=== PATIENT | female | born 1935 | race Hispanic/Latino ===

== ENCOUNTER 2018-06-27 09:09 | Day surgery (SDC) | payer MEDICARE ==
[2018-06-27 08:27] VITALS: BMI 29.5
[2018-06-27 09:59] LABS: INR 1.05; PARTIAL THROMBOPLASTIN TIME 28.6 Seconds (25.1-36.5); PROTHROMBIN TIME 12.1 SECONDS (9.4-12.5)
[2018-06-27 10:02] LABS: HDL CHOLESTEROL 39 mg/dL (29-60)
[2018-06-27 10:14] LABS: LDL CHOLESTEROL 60 mg/dL (0-129)
[2018-06-27] MEDS ORDERED: Lidocaine 2% Inj (20ml) ONE (11:41)
[2018-06-27] MEDS ORDERED: Phenylephrine 10 mg/ml Inj ONE (11:42)
[2018-06-27] MEDS ORDERED: Iohexol 350mgl/ml 50 ML ONE (11:42)
--- NOTE | 2018-06-27 12:27 | CARD ---
APPROVED REPORT Date of service: 06/27/2018 EKG Measurement Heart [id number] <Conclusion> Sinus tachycardia Nonspecific ST abnormality Abnormal ECG
[2018-06-27] MEDS ORDERED: Midazolam 2 MG/2 ML VIAL ONE ×2 (12:46→12:57)
[2018-06-27] MEDS ORDERED: Iohexol 350 MG/100 ML VIAL ONE (13:12)
[2018-06-27] MEDS ORDERED: Sodium Chloride 0.9% 1,000 ML IV SCH (13:45)
--- NOTE | 2018-06-27 14:16 | CARDCATH ---
PROCEDURE DATE: 06/27/2018 CARDIAC CATHETERIZATION AND PTCA HISTORY: The patient is an 83-year-old woman with history of diabetes mellitus, hypertension and hypercholesterolemia who presents with progressive exertional shortness of breath to where walking less than half a block, she develops shortness of breath. A stress test was abnormal with noted ischemic areas. Because of this, cardiac catheterization was recommended. PROCEDURE: Left heart catheterization with coronary arteriography, left ventriculogram, supra-aortic valvular injection as well as a PTCA and stent of the circumflex artery. The right femoral artery was cannulated with 6-Bangladeshi sheath. There were no complications. I performed moderate sedation which included the presence of an independent trained observer that assisted in monitoring the patient's level of consciousness and physiologic status. After administration of Versed and fentanyl, my intra service time was 30 minutes. The findings on catheterization revealed a left ventricle that contracted normally. Estimated ejection fraction of 65%. The left main artery was unremarkable. The LAD revealed diffuse atherosclerosis without critical lesions. The diagonal vessels were free of significant disease. The circumflex artery was a large vessel and revealed an eccentric 80% stenosis noted in the proximal portion. The right coronary artery was a codominant vessel and revealed a 50% stenosis in its midportion. Supra-aortic valvular injection revealed no aortic insufficiency. The patient was started on intravenous Angiomax on the fluoroscopic guide, the guiding catheter was placed in the ostium of the left main artery. An ATW wire was used to cross the critical lesion in the circumflex artery. A 3.5 x 12 mm drug-eluting stent was placed and deployed in the proximal circumflex at 16 atmospheres of pressure. Repeat coronary arteriography revealed an excellent result with no residual stenosis and HEATH 3 flow. The patient tolerated the procedure well. Angio-Seal was used to close the femoral artery site. In summary, the procedure was successful PTCA and stent of a critically stenosed circumflex artery with a drug-eluting stent. Cardiac catheterization reveals an 80% eccentric stenosis in the proximal circumflex. A 50% stenoses in the mid RCA. Normal LV function. No aortic insufficiency. Given these findings, the patient will need to remain on aspirin indefinitely and Plavix for at least a year and undergo a strict cardiac risk reduction program. If she continues to experience symptoms, we will consider PTCA and stent of the 50% RCA stenoses. Hemal Noel MD [facility] # [id number]
--- NOTE | 2018-06-27 19:46 | CARD ---
APPROVED REPORT Date of service: 06/27/2018 EKG Measurement Heart [id number] <Conclusion> Atrial fibrillation with rapid ventricular response Abnormal QRS-T angle, consider primary T wave abnormality Abnormal ECG
--- NOTE | 2018-06-27 21:00 | HP ---
HISTORY OF PRESENT ILLNESS: The patient is an 83-year-old woman with a past medical history of hypertension, hyperlipidemia and type 2 diabetes mellitus who presented for electively scheduled cardiac catheterization after undergoing an abnormal nuclear stress test. The patient was initially seen in her PMD's office 4 days ago for evaluation of progressively worsening exertional dyspnea and decreased exercise tolerance. She was scheduled for a nuclear stress test with Dr. Noel which was grossly abnormal and, as such, was scheduled for a cardiac catheterization. The patient was taken to the cardiac catheterization lab with Dr. Noel where cardiac cath revealed 80% stenosis to the proximal circumflex (which was stented with a drug-eluting stent) and 50% stenosis to the mid RCA (which was not instrumented). The patient tolerated the procedure well and no immediate postprocedure complications were noted. She was subsequently transferred to the telemetry lambert for continued post procedure care. PAST MEDICAL HISTORY: As per HPI, also hypothyroidism, osteoarthritis and GERD. PAST SURGICAL HISTORY: Hysterectomy and removal of benign breast lump. ALLERGIES: NKDA. MEDICATIONS: Synthroid 125 mcg p.o. daily, Glipizide 5 mg p.o. b.i.d., Oxybutynin 5 mg p.o. b.i.d., Protonix 40 mg p.o. daily, Metoprolol 25 mg p.o. b.i.d., Lipitor 40 mg p.o. daily, Ramipril 10 mg p.o. daily and Aspirin 81 mg p.o. daily. FAMILY HISTORY: Noncontributory. SOCIAL HISTORY: The patient is a former [id number]-lesn smoker but quit 15 years ago. She reports social alcohol use and denies illicit drug abuse. REVIEW OF SYSTEMS: A 12-point review of systems is negative except as per HPI. PHYSICAL EXAMINATION: VITAL SIGNS: Temperature 97.2, pulse 100, blood pressure 155/90, respiratory rate 20, oxygen saturation 99% on room air. GENERAL: No apparent distress. HEENT: PERRL, EOMI. No scleral icterus. No conjunctival pallor. NECK: No JVD, no bruits. LUNGS: Clear to auscultation. CARDIOVASCULAR: Regular rate and rhythm. Normal S1, S2. ABDOMEN: Normoactive bowel sounds. Soft, nontender, nondistended. EXTREMITIES: No edema. No femoral bruits or hematoma noted at catheterization site. NEUROLOGIC: Awake, alert and oriented x 3. No focal motor deficits. LABORATORY DATA: Labs are pending. ASSESSMENT: The patient is an 83-year-old woman with past medical history of hypertension, hyperlipidemia and type 2 diabetes mellitus who presented for electively scheduled cardiac catheterization after undergoing an abnormal nuclear stress who is now s/p PCI with ARVIND stent placement to the proximal circumflex lesion. PLAN: 1. CAD s/p PCI with ARVIND stent placement. Input from Dr. Noel noted and greatly appreciated. Continue with postcatheterization care as per Dr. Noel. Continue Aspirin 81 mg p.o. daily, Plavix 75 mg p.o. daily, Lipitor 40 mg p.o. daily and Metoprolol 25 mg p.o. b.i.d. 2. Hypertension. Continue Metoprolol 25 mg p.o. b.i.d. 3. Hyperlipidemia. Continue Lipitor 40 mg p.o. daily. 4. Type 2 diabetes mellitus. Resume Glipizide 5 mg p.o. b.i.d. 6. Hypothyroidism. Resume Synthroid 125 mcg p.o. daily. 7. Osteoarthritis. 8. Prophylaxis. GI prophylaxis not indicated as the patient is eating. DVT prophylaxis not indicated as the patient is ambulatory. CODE STATUS: Full code. Romulo Flores MD [facility]
[2018-06-27] MEDS ORDERED: Latanoprost 2.5 ml Opht Soln OU SCH (22:00)
[2018-06-28 00:17] VITALS: RESP 20
[2018-06-28] MEDS ORDERED: Levothyroxine 125 MCG TAB PO SCH (06:00)
[2018-06-28 06:14] VITALS: O2SAT 98
[2018-06-28 07:17] LABS: BLOOD UREA NITROGEN 15 mg/dL (7-21); CALCIUM 8.8 mg/dL (8.4-10.5); GFR NON-AFRICAN AMERICAN > 60
[2018-06-28 07:21] LABS: BASO # 0.04 K/mm3 (0.0-2.0); BASO % 0.5 % (0.0-3.0); EOS # 0.3 (0.0-0.7); EOS % 3.3 % (1.5-5.0); GRAN # 5.62 (1.4-6.5); GRAN % 68.3 % (50.0-68.0); HEMOGLOBIN 10.5 g/dL (12.0-16.0); LYMPH # 1.6 (1.2-3.4); LYMPH % 18.9 % (22.0-35.0); MEAN CELL VOLUME 84.4 fl (80.0-105.0); MEAN CORPUSCULAR HEMOGLOBIN 25.5 pg (25.0-35.0); MEAN CORPUSCULAR HGB CONC 30.3 g/dl (31.0-37.0); MEAN PLATELET VOLUME 9.6 fl (7.0-11.0); MONO # 0.7 (0.1-0.6); RBC 4.11 10^6/uL (3.5-6.1); RED CELL DISTRIBUTION WIDTH 15.5 % (11.5-14.5); WHITE BLOOD COUNT 8.2 10^3/uL (4.5-11.0)
--- NOTE | 2018-06-28 12:20 | PN ---
SUBJECTIVE: The patient was seen and examined at bedside on the telemetry lambert. No acute events overnight. She is doing well s/p cardiac catheterization. She was tachycardic with a pulse in the 200s upon ambulation but was asymptomatic during these episodes. She also remains slightly hypertensive but overall is doing well and offers no complaints. OBJECTIVE: VITAL SIGNS: Temperature 98.9, pulse 107, blood pressure 147/102, respiratory rate 20, oxygen saturation 98% on room air. GENERAL: No apparent distress. HEENT: PERRL, EOMI. No scleral icterus. No conjunctival pallor. NECK: No JVD, no bruits. LUNGS: Clear to auscultation. CARDIOVASCULAR: Regular rate and rhythm. Normal S1 and S2. ABDOMEN: Normoactive bowel sounds. Soft, nontender, nondistended. EXTREMITIES: No edema. No femoral bruit or hematoma. NEUROLOGIC: Awake, alert and oriented x 3. No focal motor deficits. LABORATORY DATA: WBC 8.2, hemoglobin 10.5, hematocrit 35, platelets 225. Chemistry reviewed and unremarkable. ASSESSMENT: The patient is an 83-year-old woman with a past medical history of hypertension, hyperlipidemia and type 2 diabetes mellitus who presented for electively scheduled cardiac catheterization after undergoing an abnormal nuclear stress test and is now s/p PCI with ARVIND stent placement to the proximal circumflex lesion. PLAN: 1. CAD s/p PCI with ARVIND stent placement. Input from Dr. Noel noted and appreciated. Continue Aspirin 81 mg p.o. daily, Plavix 75 mg p.o. daily, Lipitor 40 mg p.o. daily and increase Metoprolol to 50 mg p.o. b.i.d. 2. Hypertension. As above. We will increase Metoprolol to 50 mg p.o. b.i.d. 3. Hyperlipidemia. Continue Lipitor 40 mg p.o. daily. 4. Type 2 diabetes mellitus. Continue Glipizide 5 mg p.o. b.i.d. 5. Hypothyroidism. Continue Synthroid 125 mcg p.o. daily. 6. Osteoarthritis. 7. Prophylaxis. GI prophylaxis not indicated as the patient is eating. DVT prophylaxis not indicated as the patient is ambulatory. CODE STATUS: Full code. Romulo Flores MD [facility] # [id number] MTDD
[2018-06-28 13:06] VITALS: BP 161/97; PULSE 84; TEMP 97.8
--- NOTE | 2018-06-28 13:19 | PN ---
DATE: 06/28/2018 CARDIOLOGY FOLLOWUP SUBJECTIVE: The patient is complaining of having her procedure done of status post PTCA and stent of a proximal circumflex lesion of 80% with a drug-eluting stent. PHYSICAL EXAMINATION: VITAL SIGNS: Stable. NECK: Negative JVD. LUNGS: Without rales. HEART: S1 and S2. EXTREMITIES: Without edema. LABORATORY DATA: Unremarkable. IMPRESSION: 1. Stable post percutaneous transluminal coronary angioplasty and stent. 2. Resolution of dyspnea. 3. Double-vessel coronary artery disease with 50% mid-right coronary artery lesion. 4. Hypercholesteremia. PLAN: Given these findings, I have discussed with the patient about the need to take Plavix for a year, given the drug-eluting stent placement. The patient understands what is better about having her procedure done. I have instructed the patient to follow up with Dr. Flores as an outpatient next week. Hemal Noel MD
== END 2018-06-28 13:26 | disposition home or self-care (01) ==
LOC: CATH 09:09 → 2RSO 13:38 → CATH 06-28 13:26
PROVIDERS: ATTEND Internal Medicine Cardiovascular Disease
DX: I25.10 Atherosclerotic heart disease of native coronary artery without angina pectoris (principal); I10 Essential (primary) hypertension; E11.9 Type 2 diabetes mellitus without complications; E03.9 Hypothyroidism, unspecified; E78.00 Pure hypercholesterolemia, unspecified; E78.5 Hyperlipidemia, unspecified; I48.91 Unspecified atrial fibrillation; K21.9 Gastro-esophageal reflux disease without esophagitis; M19.90 Unspecified osteoarthritis, unspecified site; Z79.82 Long term (current) use of aspirin; Z79.84 Long term (current) use of oral hypoglycemic drugs
CPT/HCPCS: 36415 ×2; 80048; 80061; 82948 ×2; 85025; 85610; 85730; 86850; 86900; 93005; 93458; 99152; 99153; C1769 ×2; C1874; C1887; C2629; C9600; J0583; J1644; J2250; J3010; J7030; Q9967 ×2

== ENCOUNTER 2018-07-17 11:20 | Inpatient (IN) | payer MEDICARE ==
[2018-07-17 12:22] LABS: VENOUS BLOOD GAS BASE EXCESS -4.2 mmol/L (0.0-2.0); VENOUS BLOOD GAS PO2 63 mm/Hg (30-55); VENOUS BLOOD PH 7.29 (7.32-7.43)
--- NOTE | 2018-07-17 12:25 | ED PDOC ---
Arrival/HPI - General Chief Complaint: Shortness Of Breath Time Seen by Provider: 07/17/18 11:22 Historian: Patient - Critical Care Critical Care Minutes: 30 minutes - History of Present Illness Narrative History of Present Illness (Text): 07/17/18 11:45 83 year old female, with past medical history of hypertension, hyperlipidemia, Type 2 diabetes mellitus, ID and recent cardiac catheterization (06/27/18), was referred to the Emergency department by her PMD for evaluation of shortness of breath since prior to arrival. Patient states she was unable to sleep for past 2 nights, prompting her to visit her PMD this morning for evaluation. As per patient, while she was explaining her symptoms, patient experienced an episode of shortness of breath at the office and was subsequently referred to the ED for evaluation. Patient reports similar episodes of intermittent shortness of breath since her catheterization associated with intermittent dyspnea on exertion but denies any associated chest pain. Patient denies any fevers, chills, headache, dizziness, cough, abdominal pain, nausea, vomiting, diarrhea, back pain, neck pain, leg swelling or any other complaints. PMD: Dr. Flores Vocal Artist: Dr. Noel Time/Duration: Prior to Arrival Symptom Onset: Gradual Symptom Course: Unchanged Activities at Onset: Light Context: Other (Referred by Dr. Flores) Past Medical History - Provider Review Nursing Documentation Reviewed: Yes - Tetanus Immunization Tetanus Immunization: Up to Date - Cardiac Hx Pacemaker: No - Pulmonary Hx Respiratory Disorders: No - Neurological Hx Paralysis: No - HEENT Hx HEENT Disorder: Yes (WEARS RX GLASSES) Hx Cataracts: Yes (WITH SURGERY) - Renal Hx Renal Disorder: No - Endocrine/Metabolic Hx Hyperthyroidism: Yes Hx Hypothyroidism: Yes - Hematological/Oncological Hx Blood Transfusions: No Hx Blood Transfusion Reaction: No - Integumentary Hx Dermatological Disorder: No - Musculoskeletal/Rheumatological Hx Musculoskeletal Disorders: Yes - Gastrointestinal Hx Gastrointestinal Disorders: Yes (CONSTIPATION) Hx Gastroesophageal Reflux: Yes - Genitourinary/Gynecological Hx Genitourinary Disorders: (HYSTERECTOMY) - Psychiatric Hx Emotional Abuse: No Hx Physical Abuse: No Hx Substance Use: No - Surgical History Hx Hysterectomy: Yes Hx Joint Replacement: Yes - Anesthesia Hx Anesthesia: Yes Hx Anesthesia Reactions: No Hx Malignant Hyperthermia: No - Suicidal Assessment Feels Threatened In Home Enviroment: No Family/Social History - Physician Review Nursing Documentation Reviewed: Yes Family/Social History: Unknown Family HX Smoking Status: Former Smoker Hx Alcohol Use: No Hx Substance Use: No Hx Substance Use Treatment: (quit 10 years ago) Allergies/Home Meds Allergies/Adverse Reactions: Allergies No Known Allergies Allergy (Verified 06/01/16 13:07) Home Medications: Home Meds Medication Instructions Recorded Confirmed Aspirin [Ecotrin] 325 mg PO DAILY 09/28/13 06/28/18 GlipiZIDE [Glucotrol] 5 mg PO BID 09/28/13 06/28/18 Levothyroxine 125 mcg PO DAILY 09/28/13 06/28/18 Meloxicam [Mobic] 15 mg PO DAILY 09/28/13 06/27/18 Oxybutynin [Ditropan Tab] 5 mg PO BID 09/28/13 06/28/18 Ramipril 10 mg PO DAILY 09/28/13 06/27/18 Atorvastatin [Lipitor] 40 mg PO DAILY 06/27/18 06/27/18 Calcium Carbonate [Oscal] 500 mg PO DAILY 06/27/18 06/27/18 Donepezil [Aricept] 5 mg PO DAILY 06/27/18 06/27/18 Pantoprazole [Protonix EC Tab] 40 mg PO DAILY 06/27/18 06/27/18 Review of Systems - Physician Review All systems were reviewed & negative as marked: Yes - Review of Systems Constitutional: absent: Fevers Respiratory: SOB. absent: Cough Cardiovascular: absent: Chest Pain Gastrointestinal: absent: Abdominal Pain, Diarrhea, Nausea, Vomiting Genitourinary Female: absent: Dysuria, Hematuria Musculoskeletal: absent: Back Pain, Neck Pain Skin: absent: Rash Neurological: absent: Headache, Dizziness Physical Exam Vital Signs Reviewed: Yes Vital Signs Temp Pulse Resp BP Pulse Ox 07/17/18 11:37 18 07/17/18 11:34 97.9 F 107 H 18 139/89 91 L Temperature: Afebrile Blood Pressure: Normal Pulse: Tachycardic Respiratory Rate: Normal Appearance: Positive for: Well-Appearing, Non-Toxic, Comfortable Pain Distress: None Mental Status: Positive for: Alert and Oriented X 3 - Systems Exam Head: Present: Atraumatic, Normocephalic Pupils: Present: PERRL Extroacular Muscles: Present: EOMI Conjunctiva: Present: Normal Neck: Present: Normal Range of Motion Respiratory/Chest: Present: Clear to Auscultation, Good Air Exchange, Tachypneic (91% saturation at room air as per RN). No: Respiratory Distress, Accessory Muscle Use, Wheezes, Rhonchi Cardiovascular: Present: Regular Rate and Rhythm, Normal S1, S2. No: Murmurs Abdomen: No: Tenderness, Distention, Peritoneal Signs Back: Present: Normal Inspection Upper Extremity: Present: Normal Inspection. No: Cyanosis, Edema Lower Extremity: Present: Normal Inspection. No: Edema Neurological: Present: GCS=15, CN II-XII Intact, Speech Normal Skin: Present: Warm, Dry, Normal Color. No: Rashes Psychiatric: Present: Alert, Oriented x 3, Normal Insight, Normal Concentration Medical Decision Making ED Course and Treatment: 07/17/18 11:45 Impression: 83 year old female presents to the Emergency department for evaluation of shortness of breath. Differential Diagnosis included but are not limited to: Shortness of breath r/o ACS, CHF, PE Plan: -- VBG -- CTA -- EKG -- Labs -- Chest X-ray -- Blood Culture -- Reassess and disposition Prior Visits: Notes and results from previous visits were reviewed. Progress Notes: EKG: Ordered, reviewed, and independently interpreted the EKG, shows sinus tachycardia at 106bpm with PACs. 07/17/18 14:59 Chest X-ray reviewed by radiologist, shows patchy infiltrate to right lower lobe. CTA reviewed by radiologist, shows no pulmonary embolism. Moderate pericardial effusion. Moderate bilateral PE, right greater than left. Severe bullous emphysema. 07/17/18 15:05 Patient feels much better after 1 L NS. No more fluids were ordered. Lungs are clear. No w/r/r. No respiratory distress. Case discussed with Romulo Lugo who agrees with plan to treat with Las ix IV, Solumedrol IV, and Albuterol treatment. Case discussed with Dr. Noel who came to evaluate patient. All involved agree with placement to Telemetry. - RAD Interpretation Radiology Orders: 07/17/18 11:45 ANGIO CHEST PE PROTOCOL [CT] Stat 07/17/18 11:46 CHEST PORTABLE [RAD] Stat Fiber Picker: Radiologist - EKG Interpretation Interpreted by ED Physician: Yes Type: 12 lead EKG - Scribe Statement The provider has reviewed the documentation as recorded by the Mitchellibmague Ferreira. All medical record entries made by the Jeovany were at my direction and personally dictated by me. I have reviewed the chart and agree that the record accurately reflects my personal performance of the history, physical exam, medical decision making, and the department course for this patient. I have also personally directed, reviewed, and agree with the discharge instructions and disposition. Disposition/Present on Arrival - Present on Arrival Any Indicators Present on Arrival: No History of DVT/PE: No History of Uncontrolled Diabetes: No Urinary Catheter: No History of Decub. Ulcer: No History Surgical Site Infection Following: None - Disposition Have Diagnosis and Disposition been Completed?: Yes Diagnosis: Pericardial effusion, CHF (congestive heart failure) Disposition: HOSPITALIZED Disposition Time: 15:04 Patient Plan: Admission Patient Problems: Current Active Problems Problem Status Onset Pericardial effusion Acute CHF (congestive heart failure) Acute Condition: GUARDED
[2018-07-17] MEDS ORDERED: Sodium Chloride 0.9% 1,000 ML IV STA (12:30)
[2018-07-17 12:41] LABS: BASO # 0.03 K/mm3 (0.0-2.0); BASO % 0.4 % (0.0-3.0); EOS % 0.5 % (1.5-5.0); GRAN % 72.6 % (50.0-68.0); HEMOGLOBIN 11.2 g/dL (12.0-16.0); LYMPH # 1.6 (1.2-3.4); LYMPH % 19.2 % (22.0-35.0); MEAN CELL VOLUME 83.4 fl (80.0-105.0); MEAN CORPUSCULAR HEMOGLOBIN 25.4 pg (25.0-35.0); MEAN CORPUSCULAR HGB CONC 30.4 g/dl (31.0-37.0); MEAN PLATELET VOLUME 9.7 fl (7.0-11.0); MONO # 0.6 (0.1-0.6); MONO % 7.3 % (1.0-6.0); RBC 4.41 10^6/uL (3.5-6.1); RED CELL DISTRIBUTION WIDTH 15.7 % (11.5-14.5); WHITE BLOOD COUNT 8.3 10^3/uL (4.5-11.0)
[2018-07-17 12:42] LABS: ALB/GLOB RATIO 1.2 (1.1-1.8); ALBUMIN 3.7 g/dL (3.0-4.8); ALT/SGPT 35 U/L (7-56); AST/SGOT 33 U/L (14-36); BLOOD UREA NITROGEN 22 mg/dL (7-21); CALCIUM 9.4 mg/dL (8.4-10.5); GFR NON-AFRICAN AMERICAN > 60
[2018-07-17 12:47] LABS: INR 1.46; PARTIAL THROMBOPLASTIN TIME 25.1 Seconds (25.1-36.5); PROTHROMBIN TIME 16.9 SECONDS (9.4-12.5)
[2018-07-17 12:48] LABS: B-TYPE NATRIURETIC PEPTIDE 8030 pg/mL (0-450); TROPONIN I 0.03 ng/mL
[2018-07-17] MEDS ORDERED: Iohexol 350 MG/100 ML VIAL ONE (13:34)
--- NOTE | 2018-07-17 14:15 | RAD ---
Date of service: 07/17/2018 HISTORY: shortness of breathe COMPARISON: No prior. FINDINGS: LUNGS: Patchy infiltrate in the right lower lobe. PLEURA: No significant pleural effusion identified, no pneumothorax apparent. CARDIOVASCULAR: Aortic calcifications Moderate to severe cardiomegaly no pulmonary vascular congestion. OSSEOUS STRUCTURES: No significant abnormalities. VISUALIZED UPPER ABDOMEN: Normal. OTHER FINDINGS: None. IMPRESSION: Patchy infiltrate in the right lower lobe
--- NOTE | 2018-07-17 14:41 | CT ---
Date of service: 07/17/2018 PROCEDURE: CT Chest with contrast (Pulmonary Angiogram) HISTORY: sob r/o PE COMPARISON: None available. TECHNIQUE: Axial computed tomography images were obtained of the chest in the pulmonary arterial phase of enhancement. Coronal and sagittal reformatted images were created and reviewed. Intravenous contrast dose: Radiation dose: Total exam DLP = 439.5 mGy-cm. This CT exam was performed using one or more of the following dose reduction techniques: Automated exposure control, adjustment of the mA and/or kV according to patient size, and/or use of iterative reconstruction technique. FINDINGS: PULMONARY ARTERIES: Unremarkable. No pulmonary embolism. AORTA: No acute findings. No thoracic aortic aneurysm. Aortic calcifications. LUNGS: Severe bolus emphysema addendum a upper lung zones. PLEURAL SPACES: Moderate bilateral right breast atelectasis. HEART: Cardiomegaly. Moderate pericardial effusion. LYMPH NODES: No lymphadenopathy. BONES, CHEST WALL: Unremarkable. No fracture or destructive lesion OTHER FINDINGS: Unremarkable. IMPRESSION: No pulmonary embolism. Moderate pericardial effusion. Moderate bilateral pleural effusions, right greater left. Severe bullous emphysema.
[2018-07-17] MEDS ORDERED: Albuterol-Ipratrop 3 mg / 0.5 (3 ml) UD IH STA (14:57)
[2018-07-17] MEDS ORDERED: Albuterol-Ipratrop 3 mg / 0.5 (3 ml) UD IH PRN (15:14)
[2018-07-17] MEDS ORDERED: Albuterol-Ipratrop 3 mg / 0.5 (3 ml) UD IH SCH (15:15)
[2018-07-17 17:15] LABS: VENOUS BLOOD GAS BASE EXCESS -5.8 mmol/L (0.0-2.0); VENOUS BLOOD GAS PO2 37 mm/Hg (30-55); VENOUS BLOOD PH 7.22 (7.32-7.43)
[2018-07-17] MEDS ORDERED: Sodium Chloride 0.9% 1,000 ML IV SCH (17:30)
[2018-07-17] MEDS: Insulin Reg-LOW-Coverage SC SCH ×2 (17:33→22:43)
[2018-07-17 18:24] LABS: ALB/GLOB RATIO 1.2 (1.1-1.8); ALBUMIN 3.5 g/dL (3.0-4.8); ALT/SGPT 30 U/L (7-56); AST/SGOT 35 U/L (14-36); BLOOD UREA NITROGEN 19 mg/dL (7-21); CALCIUM 8.3 mg/dL (8.4-10.5); GFR NON-AFRICAN AMERICAN > 60
[2018-07-17] MEDS ORDERED: Magnesium Sulfate 2 gm/50 ml 2 GM/50 ML BAG IVPB ONE (18:28)
[2018-07-17] MEDS ORDERED: diltiaZEM IVPB 100mg in NS 100 ML IV SCH (18:45)
--- NOTE | 2018-07-17 19:24 | CARD ---
APPROVED REPORT Date of service: 07/17/2018 EKG Measurement Heart [id number] <Conclusion> Sinus tachycardia with premature atrial complexes with aberrant conduction Cannot rule out Anterior infarct, age undetermined Abnormal ECG
[2018-07-17 19:25] LABS: BASO # 0.02 K/mm3 (0.0-2.0); BASO % 0.3 % (0.0-3.0); GRAN # 6.82 (1.4-6.5); GRAN % 89.2 % (50.0-68.0); HEMOGLOBIN 10.9 g/dL (12.0-16.0); LYMPH # 0.7 (1.2-3.4); LYMPH % 8.8 % (22.0-35.0); MEAN CELL VOLUME 82.6 fl (80.0-105.0); MEAN CORPUSCULAR HEMOGLOBIN 24.9 pg (25.0-35.0); MEAN CORPUSCULAR HGB CONC 30.1 g/dl (31.0-37.0); MEAN PLATELET VOLUME 9.3 fl (7.0-11.0); MONO # 0.1 (0.1-0.6); MONO % 1.7 % (1.0-6.0); RBC 4.38 10^6/uL (3.5-6.1); RED CELL DISTRIBUTION WIDTH 15.6 % (11.5-14.5); WHITE BLOOD COUNT 7.6 10^3/uL (4.5-11.0)
[2018-07-17] MEDS ORDERED: Levalbuterol 1.25 MG/3 ML Inhal Soln UD IH PRN (20:07)
[2018-07-17] MEDS ORDERED: MethylPREDNISolone 40 mg Vial IVP SCH (22:00)
--- NOTE | 2018-07-18 00:17 | CON ---
DATE: 07/17/2018 HISTORY OF PRESENT ILLNESS: The patient is an 83-year-old woman who presents with on and off shortness of breath since her angioplasty on 06/27/2018. At that time, the patient presented with progressive exertional shortness of breath until she developed chest pain at rest. Stress test revealed ischemic areas in the posterior wall. The patient underwent successful PTCA and stenting of 80% circumflex artery. Her overall ejection fraction is 65%. The patient now presents to the emergency room with progressive shortness of breath with minimal exertion. She states she has been taking all her medications faithfully. PAST MEDICAL HISTORY: Her past medical history includes a long history of smoking with four packs a day that was stopped several years ago. She suffers from diabetes mellitus, hypertension, and hypercholesterolemia. FAMILY HISTORY: Text. SOCIAL HISTORY: Text. REVIEW OF SYSTEMS: A 14-point review of systems revealed no angina, but positive exertional dyspnea with negative edema in the lower extremities. PHYSICAL EXAMINATION VITAL SIGNS: Blood pressure is 131/70, heart rate is 100. NECK: Negative JVD. CARDIOPULMONARY: S1 and S2. LUNGS: Without rales. EXTREMITIES: Without edema. EKG shows no acute changes. LABORATORY DATA: Hemoglobin is 11.2. Chemistries: BUN and creatinine unremarkable. Glucose is 147. The ProBNP is 8030. Preliminary echocardiogram reveals mild LV hypokinesis diffusely, mild pericardial effusion with severe pulmonary hypertension. IMPRESSION: 1. Progressive shortness of breath. 2. Mild acute systolic congestive heart failure. 3. Ischemic dilated cardiomyopathy. 4. History of percutaneous transluminal coronary angioplasty and stent of the circumflex artery. 5. Severe pulmonary hypertension. 6. High probability for severe chronic obstructive pulmonary disease. 7. Diabetes mellitus. PLAN: Given these findings, we will order Lasix for the patient today. She will continue on aspirin and Plavix. We will proceed to do a cardiac catheterization in the morning, both to measure her pulmonary pressures as well as to review the patency of her circumflex artery stent. I have discussed this with the patient in detail. She is agreeable. Hemal Noel MD
[2018-07-18 00:44] VITALS: BMI 31.1
[2018-07-18] MEDS: diltiaZEM IVPB 100mg in NS 100 ML IV SCH ×3 (02:32→19:08)
[2018-07-18] MEDS: Levothyroxine 125 MCG TAB PO SCH (06:05)
[2018-07-18] MEDS: Budesonide 0.5 mg/2 ml Inhal Susp UD IH SCH ×2 (07:44→21:06)
--- NOTE | 2018-07-18 07:46 | CON ---
PULMONARY CONSULTATION DATE OF CONSULTATION: 07/18/2018 REASON FOR PULMONARY CONSULTATION: Dyspnea on exertion. REFERRING PHYSICIAN FOR THIS PULMONARY CONSULTATION: Romulo Flores MD HISTORY OF PRESENT ILLNESS: The patient is an 83-year-old female, with past medical history significant for coronary artery disease, status post angioplasty on 06/27/2018, chronic obstructive pulmonary disease, ischemic cardiomyopathy, pulmonary hypertension, diabetes mellitus, who presents to [facility] (Former[facility]) with main complaint of dyspnea on exertion for the past 3 weeks. The patient states that since her angioplasty, even minimal activity makes her breathless. She is not short of breath at rest. She does have a chronic occasional cough with occasional sputum production - unchanged. There is no history of chest pain, coughing up of blood, or chest pain - made worse with deep respirations. There is no history of temperatures, chills or infectious exposure. There is no history of night sweats, weight loss or appetite change prior to the above events. No history of leg or calf pains. No history of syncope or diaphoresis. No history of recent travel or trauma. FAMILY HISTORY: No inheritable diseases. SOCIAL HISTORY: Positive for extensive tobacco usage - stopped 15 years ago. No alcohol. MEDICATIONS: Ramipril Protonix, metoprolol, Mobic, Glucotrol, Aricept, Os-Ash, Lipitor, Ecotrin. ALLERGIES: NO KNOWN ALLERGIES. REVIEW OF SYSTEMS: No history of nausea, vomiting or diarrhea. No acute urinary symptoms. No new neurologic complaints. Rest of the review of systems is negative. PHYSICAL EXAMINATION: GENERAL: The patient appears comfortable this morning. She is not short of breath at rest. VITAL SIGNS: Temperature is 98.4, pulse is 108, respiratory rate 18/20, blood pressure 136/84. Oxygen saturation on nasal cannula is 95-96%. HEENT: Normocephalic, atraumatic. No JVD. CARDIOVASCULAR: Systolic ejection murmur at the lower left sternal border. Questionable S3 gallop. LUNGS: Decreased breath sounds at both bases. Minimal rhonchi. No wheezing. EXTREMITIES: Mild edema. No cyanosis, no clubbing. Calves are nontender to palpation. GI: Abdomen is soft, nontender and nondistended. Bowel sounds are positive. SKIN: No acute rash. NEUROLOGIC: Exam limited at the present time. PERTINENT LABORATORY DATA: CAT scan of the chest was done as an angiogram protocol. There is no pulmonary embolism seen. There is a moderate right pleural effusion. There is a smaller left pleural effusion. There is minimal consolidation adjacent to both pleural effusions. There is severe bullous emphysema noted primarily in the upper lobes. There is no lymphadenopathy. CBC: White count 7.6K, hemoglobin 10.9, hematocrit 36.2, platelets of 223,000. Complete metabolic profile: Carbon dioxide 18, glucose 150, calcium 8.3. Rest of the metabolic profile is within normal limits. Initial B-type natriuretic peptide 8030. The patient did have an echocardiogram on 06/26/2018. There is moderate pulmonary hypertension noted. However, I do not see a measurement of the right ventricular systolic pressure. The patient also had a repeat echocardiogram yesterday - results pending. IMPRESSION: 1. Acute congestive heart failure. 2. Bilateral pleural effusions. 3. Chronic obstructive pulmonary disease. 4. Probable pulmonary hypertension. 5. Ischemic cardiomyopathy. PLAN The patient presents to [facility] ([facility]) with main complaint of increasing dyspnea on exertion since her angioplasty (06/27/2018). In addition, the patient states to a chronic occasional cough with occasional sputum production. She offers no other pulmonary symptoms. I did review the CT scan of the chest - done as an angiogram protocol. Findings are noted above. The patient has received multiple doses of intravenous Lasix. On physical exam, there is only minimal bronchospasm noted. However, there is no significant alveolar-arterial gradient. I will continue with the low dose steroids, and try changing the nebulizer treatments to half-strength Xopenex. I will also add inhaled Pulmicort. The patient should receive a pulmonary function test - when out of the acute care setting. In addition, the patient may very well need treatment for her pulmonary hypertension. I am awaiting the results of the repeat echocardiogram. The patient does state to feeling better this morning - compared to the past few days. She appears clinically improved. Additional pulmonary intervention will be based on the above results, as well as the clinical status of the patient. I will discuss the above with the attending physician later this morning. Thank you very much for this pulmonary consultation. Percy Devlin MD [facility] # [id number] LOU
[2018-07-18] MEDS ORDERED: Levalbuterol 1.25 MG/3 ML Inhal Soln UD IH SCH (08:00)
[2018-07-18] MEDS: Insulin Reg-LOW-Coverage SC SCH ×3 (08:12→17:36)
[2018-07-18] MEDS ORDERED: Lidocaine 2% Inj (20ml) ONE (08:53)
[2018-07-18] MEDS ORDERED: Iodixanol 320 MG/ML 100 ML BOTTLE IV ONE (08:53)
[2018-07-18] MEDS ORDERED: Iodixanol 320 MG/ML 200 ML BOTTLE IV ONE (08:53)
[2018-07-18] MEDS ORDERED: Midazolam 2 MG/2 ML VIAL ONE ×2 (08:58→09:33)
--- NOTE | 2018-07-18 10:35 | CP.PCM.PN ---
Subjective - Date & Time of Evaluation Date of Evaluation: 07/18/18 Time of Evaluation: 10:28 - Subjective Subjective: Pt seen and examined at bedside status post cardiac cath Pt offers no complaints , on bedrest post procedure Objective - Vital Signs/Intake and Output Vital Signs (last 24 hours): Temp Pulse Resp BP Pulse Ox 98.4 F 108 H 20 136/84 95 07/18/18 06:00 07/18/18 06:00 07/18/18 06:00 07/18/18 06:00 07/18/18 00:01 Intake and Output: 07/18/18 07/18/18 06:59 18:59 Intake Total 240 Balance 240 - Medications Medications: Current Medications Albuterol/Ipratropium (Duoneb 3 Mg/0.5 Mg (3 Ml) Ud) 3 ml IH Q2H PRN PRN Reason: Shortness of Breath Apixaban (Eliquis) 5 mg PO BID [facility]; Protocol Atorvastatin Calcium (Lipitor) 40 mg PO DAILY [facility] Budesonide (Pulmicort Respules) 0.5 mg IH [id number] [facility] Last Admin: 07/18/18 07:44 Dose: Not Given Clopidogrel Bisulfate (Plavix) 75 mg PO DAILY [facility] Doxycycline Hyclate (Doryx) 100 mg PO BID [facility]; Protocol Last Admin: 07/17/18 18:51 Dose: 100 mg Furosemide (Lasix) 40 mg PO DAILY [facility] Glipizide (Glucotrol) 5 mg PO BID [facility] Last Admin: 07/17/18 18:51 Dose: 5 mg Sodium Chloride (Sodium Chloride 0.9%) 1,000 mls @ 50 mls/hr IV .Q20H [facility] Stop: 07/18/18 16:00 Last Admin: 07/17/18 18:54 Dose: 50 mls/hr diltiaZEM IVPB 100mg in NS (Cardizem 100mg In Ns) 100 mls @ 7.5 mls/hr IV .[id number] [facility] Last Admin: 07/18/18 07:40 Dose: 7.5 mls/hr Insulin Human Regular (Humulin R Low) 0 units SC ACHS [facility]; Protocol Last Admin: 07/18/18 08:12 Dose: Not Given Levalbuterol HCl (Xopenex) 0.63 mg IH [id number] [facility] Last Admin: 07/18/18 07:44 Dose: Not Given Levothyroxine Sodium (Synthroid) 125 mcg PO 0600 [facility] Last Admin: 07/18/18 06:05 Dose: Not Given Methylprednisolone (Solu-Medrol) 30 mg IVP Q12 [facility] Metoprolol Tartrate (Lopressor) 25 mg PO BID [facility] Last Admin: 07/17/18 18:00 Dose: 25 mg Ramipril (Altace) 10 mg PO DAILY [facility] Zolpidem Tartrate (Ambien) 5 mg PO HS PRN; Protocol PRN Reason: Insomnia - Labs Labs: 07/17/18 19:14 07/17/18 17:40 PT 16.9 SECONDS (9.4-12.5) H 07/17/18 12:00 INR 1.46 07/17/18 12:00 APTT 25.1 Seconds (25.1-36.5) 07/17/18 12:00 - Constitutional Appears: Well, Non-toxic - Head Exam Head Exam: ATRAUMATIC, NORMAL INSPECTION, NORMOCEPHALIC - Eye Exam Eye Exam: Normal appearance - ENT Exam ENT Exam: Mucous Membranes Moist, Normal Exam - Neck Exam Neck Exam: Full ROM, Normal Inspection - Respiratory Exam Respiratory Exam: Clear to Ausculation Bilateral - Cardiovascular Exam Cardiovascular Exam: REGULAR RHYTHM, +S1, +S2 - GI/Abdominal Exam GI & Abdominal Exam: Normal Bowel Sounds - Extremities Exam Extremities Exam: Normal Capillary Refill - Psychiatric Exam Psychiatric exam: Normal Affect - Skin Skin Exam: Normal Color, Warm Assessment and Plan - Assessment and Plan (Free Text) Assessment: 83 yr old female with pmh sig for cad with stent in RCA recently 06/27/2018, pul htn, exsmoker, dm2, LA, COPD 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 PT was in Rapid afib when she presented for the ED for which Cardizem drip was started and maintained. 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 Pulmonary and Cardiology notes reviewed. Pt also noted with elevated lactate levels. pt being treated for rapid afib , acute systolic chf and copd. will continue to follow clinically Rosa Elena Garnett
[2018-07-18] MEDS: MethylPREDNISolone 40 mg Vial IVP SCH ×2 (11:28→21:45)
[2018-07-18] MEDS: Levalbuterol 0.63 MG/3 ML Inhal Soln UD IH SCH ×2 (13:17→21:06)
--- NOTE | 2018-07-18 14:57 | CARD ---
APPROVED REPORT Date of service: 07/17/2018 EXAM: LIMITED Two-dimensional and M-mode echocardiogram. INDICATION LIMITED STUDY/FOLLOW UP FOR PERICARDIAL EFFUSION Aortic Valve AoV Peak Wekblnxh63.5cm/Charlie Peak GR.3mmHg Mitral Valve E/A ratio0.0 TDI E/Lateral E'0.0E/Medial E'0.0 Tricuspid Valve TR Peak [id number] [id number] Peak Gr.61mmHg [id number] LEFT VENTRICLE The systolic function is mildly impaired. RIGHT VENTRICLE The right ventricle is mildly dilated. ATRIA The left atrium is mildly dilated. The right atrium is moderately dilated. MITRAL VALVE The mitral valve is thickened but opens well. TRICUSPID VALVE The tricuspid valve leaflets are thickened , but open well. There is moderate to severe tricuspid regurgitation. There is moderate to severe pulmonary hypertension. PULMONIC VALVE The pulmonic valve is not well visualized. PERICARDIAL EFFUSION There is a small circumferential pericardial effusion. <Conclusion> Small circumferential pericardial effusion No hemodyamic collapse Mild LA hypokinesis Dilated LA, RA and RV Moderate to severe TR Moderate to severe pulmonary hypertension
--- NOTE | 2018-07-18 15:21 | CARD ---
APPROVED REPORT Date of service: 07/17/2018 EKG Measurement Heart [id number] <Conclusion> Sinus tachycardia with premature atrial complexes Nonspecific ST changes Abnormal ECG
--- NOTE | 2018-07-18 15:25 | HP ---
HISTORY OF PRESENT ILLNESS: The patient is an 83-year-old woman with a past medical history of CAD s/p PCI with stent placement and COPD who presented for evaluation of a 2 week history of progressively worsening dyspnea with exertion. The patient was admitted to [facility] on 06/27/18 after undergoing an abnormal nuclear stress test for evaluation of exertional dyspnea. The patient was taken to the cardiac catheterization lab with Dr. Noel which demonstrated 80% stenosis of the proximal circumflex lesion (which was stented with a drug-eluting stent) and 50% stenosis to the mid RCA which was not instrumented. She tolerated the procedure well and was doing well postprocedure with no immediate complications noted. Approximately 1 week later she developed mild dyspnea with exertion which then progressed to dyspnea at rest. On the day of presentation to the ED she was in her PMD's office where she complained of significant exertional dyspnea. She was found to be tachypneic and in moderate respiratory distress with conversational dyspnea and accessory muscle use. EMS was called and she was brought to [facility] ED. In the ED for she was tachypneic, hypoxic and tachycardic. A CT of the chest with IV contrast was negative for a pulmonary embolism but did demonstrate severe bullous emphysema, pleural effusions and cardiomegaly. She was placed on bronchodilators, supplemental oxygen and received one dose of intravenous Lasix before being admitted to telemetry lambert for continued management. This morning she is being taken to the cardiac catheterization lab with Dr. Noel to assess for stent patency and to further assess her suspected severe pulmonary hypertension. PAST MEDICAL HISTORY: As per HPI, also hypertension, hyperlipidemia, type 2 diabetes mellitus, hypothyroidism, osteoarthritis and GERD. PAST SURGICAL HISTORY: As per HPI, also hysterectomy and removal of benign breast lump. ALLERGIES: NKDA. MEDICATIONS: Aspirin 81 mg p.o. daily, Plavix 75 mg p.o. daily, Lipitor 40 mg p.o. daily, Metoprolol 50 mg p.o. b.i.d., Synthroid 125 mcg p.o. daily, Glipizide 5 mg p.o. b.i.d., Oxybutynin 5 mg p.o. b.i.d. and Ramipril 10 mg p.o. daily. FAMILY HISTORY: Noncontributory. SOCIAL HISTORY: The patient is a former 50 pack-year smoker but quit 15 years ago. She reports social alcohol use and denies illicit drug abuse. REVIEW OF SYSTEMS: A 12-point review of systems is negative except as per HPI. PHYSICAL EXAMINATION: VITAL SIGNS: Temperature 98.4, pulse 108, blood pressure 136/84, respiratory rate 20 and oxygen saturation 95% on 2 liters nasal cannula. GENERAL: No apparent distress. HEENT: PERRL, EOMI. No scleral icterus. No conjunctival pallor. NECK: No JVD. No bruits. LUNGS: Distant breath sounds with faint wheeze. CARDIOVASCULAR: Tachycardic. Normal S1 and S2. ABDOMEN: Normoactive bowel sounds. Soft, nontender and nondistended. EXTREMITIES: No edema. NEUROLOGIC: Awake, alert and oriented x 3. No focal motor deficits. LABORATORY DATA: WBC 7.6 with 89% neutrophils, hemoglobin 11, hematocrit 36 and platelets 223,000. Chemistry reviewed and unremarkable. Troponin 0.03. BNP 8030. IMAGING STUDIES: 1. Chest x-ray demonstrated patchy infiltrate to the right lower lobe. 2. CT of the chest with IV contrast demonstrated no pulmonary embolism but did demonstrate moderate pericardial effusion with moderate bilateral pleural effusions and severe bullous emphysema. ASSESSMENT: The patient is an 83-year-old woman with multiple medical comorbidities including CAD s/p stent and COPD who was admitted for management of acute systolic congestive heart failure and COPD. PLAN: 1. Acute systolic heart failure. The patient received one dose of Lasix IV in the ED. Cardiac evaluation with Dr. Noel is ongoing and the patient is being taken to the catheterization lab. We will continue to monitor strict I&O's and resume home medications. 2. CAD s/p PCI with ARVIND stent placement. As above she is being taken to the cardiac catheterization lab to assess for stent patency. Continue Aspirin 81 mg p.o. daily, Plavix 75 mg p.o. daily, Lipitor 40 mg p.o. daily and Metoprolol 50 mg p.o. b.i.d. 3. Severe pulmonary hypertension. Input from Dr. Devlin noted and greatly appreciated and we will initiate therapy after assessing the degree of her pulmonary hypertension during cardiac catheterization. 4. Severe COPD. As above, input from Dr. Devlin greatly appreciated. Continue with supplemental oxygen, bronchodilators and IV steroids to taper. 5. Ischemic cardiomyopathy. Continue with care as above. 6. Hypertension. Continue Metoprolol 50 mg p.o. b.i.d. and Ramipril 10 mg p.o. daily 7. Hyperlipidemia. Continue Lipitor 40 mg p.o. daily. 8. Type 2 diabetes mellitus. Continue Glipizide 5 mg p.o. b.i.d., low-dose insulin sliding scale for coverage and monitoring fingerstick q.a.c. and at bedtime. 9. Hypothyroidism. Continue Synthroid 125 mcg p.o. daily. 10. Osteoarthritis. 11. Prophylaxis. GI prophylaxis not indicated as the patient is eating. DVT prophylaxis not indicated as the patient is ambulatory. CODE STATUS: Full code. Romulo Flores MD MTDD
--- NOTE | 2018-07-18 15:26 | CARDCATH ---
PROCEDURE DATE: 07/18/2018 HISTORY: The patient is an 83-year-old woman who presents with on and off exertional dyspnea and was found to be in mild CHF. The patient's past medical history includes a non-STEMI in which she underwent PTCA and stent of a critical circumflex artery last month. In addition, the patient has a history of heavy smoking and was found to have pulmonary hypertension on echocardiogram. Because of this, cardiac catheterization was recommended. PROCEDURE: The right and left heart catheterization with coronary arteriography, supra-aortic valvular injection as well as left ventriculogram were performed. The left femoral artery was cannulated with a 6-Guamanian sheath. The left femoral vein was cannulated with a 7-Guamanian sheath. There were no complications. I performed moderate sedation which included the presence of an independent trained observer that assisted in monitoring the patient's level of consciousness and physiologic status. After administration of Versed and fentanyl, my intra service time was 30 minutes. The findings on catheterization included hemodynamic data, which revealed a right mean atrial pressure of 15 mmHg, RV pressure was 60/10 mmHg, pulmonary artery pressures were 55/25 mmHg, mean pulmonary capillary wedge pressure was 18 mmHg. LVEDP was measured to be 17 to 18 mmHg. There was no gradient across the aortic valve. Angiographic studies included left ventriculogram which revealed mild LV hypokinesis with an estimated ejection fraction of 50% to 55%. Supra-aortic valvular injection revealed no aortic insufficiency. Her coronary anatomy revealed a right dominant circulation. The RCA revealed an eccentric 50% stenosis in its midportion. The left main artery was unremarkable. The LAD and diagonal vessels revealed diffuse atherosclerosis with a 50% stenosis at the ostium of the first diagonal vessel. The circumflex artery and obtuse marginal branches revealed diffuse atherosclerosis with a patent stent in its proximal portion. Manual compression was used to close the femoral artery site. The patient tolerated the procedure well. In summary, the procedure revealed, 1. Moderate pulmonary hypertension. 2. A 50% stenosis in the RCA, 50% stenosis in the first diagonal vessel, with a patent stent in the proximal circumflex artery. 3. No aortic insufficiency. 4. LV function revealed mild LV hypokinesis with an EF of 50% to 55%. Given these findings, the patient's dyspnea is likely due to her COPD with an element of mild CHF. Her pulmonary hypertension will be referred to a leather scrubber for potential medications. We will give the patient Lasix. In addition, we will add Eliquis to treat her atrial fibrillation. Hemal Noel MD
[2018-07-18] MEDS: Sildenafil 20 MG TAB PO SCH (17:38)
[2018-07-19] MEDS: Levalbuterol 0.63 MG/3 ML Inhal Soln UD IH SCH ×4 (01:19→20:46)
[2018-07-19] MEDS: Insulin Reg-LOW-Coverage SC SCH ×5 (02:23→23:03)
[2018-07-19] MEDS: diltiaZEM IVPB 100mg in NS 100 ML IV SCH (06:14)
[2018-07-19] MEDS: Levothyroxine 125 MCG TAB PO SCH (06:15)
[2018-07-19] MEDS: Budesonide 0.5 mg/2 ml Inhal Susp UD IH SCH ×2 (07:40→20:46)
--- NOTE | 2018-07-19 09:44 | PN ---
DATE: 07/19/2018 PULMONARY NOTE SUBJECTIVE: The patient appears comfortable this morning. She is not short of breath at rest. PHYSICAL EXAMINATION: VITAL SIGNS: Her last temperature recorded is 98.2, pulse is 112, respiratory rate 18/20, last blood pressure recorded is 123/59. Oxygen saturation on nasal cannula is 96%. HEENT: Normocephalic, atraumatic. No JVD. CARDIOVASCULAR: Systolic ejection murmur at the lower left sternal border. Questionable S3 gallop. LUNGS: Improved breath sounds at the bases. Very minimal/less rhonchi. No wheezing. EXTREMITIES: Mild edema. No cyanosis, no clubbing. Calves are nontender to palpation. GI: Abdomen is soft, nontender and nondistended. Bowel sounds are positive. SKIN: No acute rash. NEUROLOGIC: Exam limited at the present time. PERTINENT LABORATORY DATA: Cardiac catheterization was done yesterday. The pulmonary artery pressure is measured at 55/25 mmHg. IMPRESSION 1. Acute congestive heart failure. 2. Bilateral pleural effusions. 3. Chronic obstructive pulmonary disease. 4. Moderate pulmonary hypertension. 5. Ischemic cardiomyopathy. PLAN: The patient appears comfortable this morning. She is not short of breath at rest. She does state to feeling better overall. On physical exam, there is no significant bronchospasm noted. In addition, there is no significant alveolar-arterial gradient. I will continue the current nebulizer treatments and change to oral steroids this morning. The patient did undergo a cardiac catheterization yesterday. I did discuss the results with Dr. Noel at length. The patient was placed on low-dose Revatio yesterday. I will most likely revise the medications for her pulmonary hypertension - as an outpatient. Again, the patient does have my card/information for a followup office appointment.. I would continue with the treatment for the congestive heart failure and cardiac arrhythmias as per Cardiology. Input by Dr. Noel is noted. Clinical status of the patient is certainly improved - compared to the initial presentation. However, given the above, the patient's future status/prognosis does remain guarded. I did discuss the above with Dr. Flores earlier this morning. Percy Devlin MD [facility] # [id number] LOU
--- NOTE | 2018-07-19 10:23 | CP.PCM.PN ---
Subjective - Date & Time of Evaluation Date of Evaluation: 07/19/18 Time of Evaluation: 08:00 - Subjective Subjective: pt seen and examined at bedside with respiratory treatment in progress, pt is visibly sob on exam although she dienes it and O2 sat are 88 % on 4L, discuss with resp to increase o2 levels at bedside, pt saturating 92 on 5l. pt denies cp ROS otherwise negative Per discussion with nrse pt was agitated over night and confused and received ativan by patria Quinteros Objective - Vital Signs/Intake and Output Vital Signs (last 24 hours): Temp Pulse Resp BP Pulse Ox 98.2 F 125 H 20 123/59 L 95 07/18/18 12:00 07/18/18 22:00 07/18/18 16:15 07/18/18 17:37 07/18/18 00:01 Intake and Output: 07/19/18 07/19/18 06:59 18:59 Intake Total 240 Output Total 300 Balance -60 - Medications Medications: Current Medications Albuterol/Ipratropium (Duoneb 3 Mg/0.5 Mg (3 Ml) Ud) 3 ml IH Q2H PRN PRN Reason: Shortness of Breath Apixaban (Eliquis) 5 mg PO BID [facility]; Protocol Atorvastatin Calcium (Lipitor) 40 mg PO DAILY [facility] Last Admin: 07/18/18 17:37 Dose: 40 mg Budesonide (Pulmicort Respules) 0.5 mg IH [id number] [facility] Last Admin: 07/18/18 21:06 Dose: 0.5 mg Clopidogrel Bisulfate (Plavix) 75 mg PO DAILY [facility] Last Admin: 07/18/18 11:28 Dose: Not Given Diltiazem HCl (Cardizem) 60 mg PO TID [facility] Doxycycline Hyclate (Doryx) 100 mg PO BID [facility]; Protocol Last Admin: 07/18/18 17:35 Dose: 100 mg Furosemide (Lasix) 40 mg PO DAILY [facility] Glipizide (Glucotrol) 5 mg PO BID [facility] Last Admin: 07/18/18 17:36 Dose: 5 mg diltiaZEM IVPB 100mg in NS (Cardizem 100mg In Ns) 100 mls @ 7.5 mls/hr IV .[id number] [facility] Last Admin: 07/19/18 06:14 Dose: 7.5 mls/hr Insulin Human Regular (Humulin R Low) 0 units SC ACHS [facility]; Protocol Last Admin: 07/19/18 02:23 Dose: Not Given Levalbuterol HCl (Xopenex) 0.63 mg IH [id number] [facility] Last Admin: 07/19/18 07:40 Dose: 0.63 mg Levothyroxine Sodium (Synthroid) 125 mcg PO 0600 [facility] Last Admin: 07/19/18 06:15 Dose: 125 mcg Metoprolol Tartrate (Lopressor) 25 mg PO BID [facility] Last Admin: 07/18/18 17:37 Dose: 25 mg Prednisone (Prednisone Tab) 40 mg PO DAILY [facility] Ramipril (Altace) 10 mg PO DAILY [facility] Last Admin: 07/18/18 17:35 Dose: 10 mg Sildenafil Citrate (Revatio) 20 mg PO BID [facility] Last Admin: 07/18/18 17:38 Dose: 20 mg Zolpidem Tartrate (Ambien) 5 mg PO HS PRN; Protocol PRN Reason: Insomnia Last Admin: 07/18/18 21:44 Dose: 5 mg - Labs Labs: 07/17/18 19:14 07/17/18 17:40 PT 16.9 SECONDS (9.4-12.5) H 07/17/18 12:00 INR 1.46 07/17/18 12:00 APTT 25.1 Seconds (25.1-36.5) 07/17/18 12:00 - Constitutional Appears: No Acute Distress, In Acute Distress - Head Exam Head Exam: ATRAUMATIC, NORMAL INSPECTION, NORMOCEPHALIC - Eye Exam Eye Exam: EOMI, Normal appearance Pupil Exam: NORMAL ACCOMODATION, PERRL - ENT Exam ENT Exam: Mucous Membranes Moist - Respiratory Exam Respiratory Exam: Accessory Muscle Use, Rales - Cardiovascular Exam Cardiovascular Exam: Tachycardia, Irregular Rhythm, +S1, +S2 - GI/Abdominal Exam GI & Abdominal Exam: Soft, Normal Bowel Sounds - Exam Exam: NORMAL INSPECTION - Extremities Exam Extremities Exam: Full ROM, Normal Capillary Refill, Normal Inspection - Psychiatric Exam Psychiatric exam: Normal Affect, Normal Mood - Skin Skin Exam: Dry, Intact, Normal Color, Warm Assessment and Plan - Assessment and Plan (Free Text) Assessment: 83 yr old female with pmh sig for cad with stent in RCA recently 06/27/2018, pul htn, exsmoker, dm2, [place], COPD admit with [employer] and is now admitted with pulmonary and cardiology workup in progress. PT iwas in Rapid afib when she presented for the ED for which Cardizem drip was started and maintained. chest Ct showed no pulmonary embolism but did reveal moderate bilateral pleural effusion right greater than left Pt was taken to the laboratory tester this morning for evaluation of current stent and dypsnea in the setting of cad and pul htn. Pulmonary and Cardiology notes reviewed. Pt also noted with elevated lactate levels 5.9 with negative BC, will order UA for completeness. CXR shows patchy infiltrate in Right lobe on P.O doxy Pt being treated for rapid afib, acute systolic with echo showing dilated LA, RV and chf and copd. Pt being treated for acute chf, severe copd, pulmonary htn as well Per discussion with Dr Noel, will dc sedation including Ambien secondary to last night events of confusion ? secondary to meds vs hypoxia Pulmonary notes reviewed Discussed with case maker need for home O2 Pt remains in rapid afib with IV cardizem drip, Eliquis. Heartrate remains uncontrolled, will discuss adding digoxin to regimen with Dr Noel. will continue to follow, bpci letter left for acute chf, copd, bnp and cmp ordered for am. will contine to follow, p.t eval ordered for assmt once HR controlled. Rosa Elena Garnett APN
[2018-07-19] MEDS: Sildenafil 20 MG TAB PO SCH ×2 (10:55→19:14)
--- NOTE | 2018-07-19 12:51 | PN ---
DATE: 07/19/2018 CARDIOLOGY FOLLOWUP SUBJECTIVE: The patient was confused last night and is currently sedated. She is sleepy. PHYSICAL EXAMINATION: VITAL SIGNS: Blood pressure is 123/60, heart rate is 100. NECK: Negative JVD. LUNGS: Without rales. HEART: S1 and S2. EXTREMITIES: Without edema. LABORATORY DATA: Hemoglobin is 10.9. Chemistries: BUN and creatinine were not drawn today. The glucose is 212. IMPRESSION: 1. Unstable angina. 2. Coronary artery disease. 3. Dyspnea. 4. Diabetes mellitus. 5. Pulmonary hypertension. 6. Chronic obstructive pulmonary disease. PLAN: Given these findings, the patient is being treated for her pulmonary hypertension. Eliquis has been started for atrial fibrillation. We will change her IV Cardizem to p.o. Cardizem. Hemal Noel MD
[2018-07-19 13:59] LABS: ARTERIAL BLOOD GAS HCO3 24.1 mmol/L (21-28); ARTERIAL BLOOD GAS HEMOGLOBIN 10.3 g/dL (11.7-17.4); ARTERIAL BLOOD GAS O2 CAPACITY 14.2 mL/dl (16-24); ARTERIAL BLOOD GAS O2 CONTENT 13.7 ML/dl (15-23); ARTERIAL BLOOD GAS O2 SAT 96.3 % (95-98); ARTERIAL BLOOD GAS PCO2 38 mm/Hg (35-45); ARTERIAL BLOOD GAS PH 7.41 (7.35-7.45); ARTERIAL BLOOD GAS TCO2 25.3 mmol.L (22-28)
--- NOTE | 2018-07-19 20:13 | PN ---
DATE: 07/19/2018 DAILY PROGRESS NOTE SUBJECTIVE: The patient is seen and examined at bedside on the telemetry lambert. Overnight, she was noted to be confused and required Ativan. Overall, she reports significant improvement in respiratory status since admission and otherwise offers no complaints. OBJECTIVE: GENERAL: No apparent distress. VITAL SIGNS: Temperature 97.8, pulse 85, blood pressure 114/56, respiratory rate 18, and oxygen saturation 98% on 2 L nasal cannula. HEENT: PERRL. EOMI. No scleral icterus. No conjunctival pallor. NECK: No JVD. No bruits. CARDIOPULMONARY: Regular rate and rhythm. Normal S1 and S2. LUNGS: Distant breath sounds with faint wheeze and decreased breath sounds at the bases. ABDOMEN: Normoactive bowel sounds. Soft, nontender, and nondistended. EXTREMITIES: No edema. NEUROLOGIC: Awake, alert and oriented x3. No focal motor deficits. LABORATORY DATA: No new labs. ASSESSMENT: The patient is an 83-year-old woman with multiple medical comorbidities including coronary artery disease, status post stent and chronic obstructive pulmonary disease who was admitted for management of acute systolic congestive heart failure and chronic obstructive pulmonary disease. PLAN: 1. Acute systolic heart failure. Input from Dr. Noel noted and greatly appreciated. The patient has diuresed nicely since admission. We will continue to monitor strict ins and outs and continue Lasix 40 mg p.o. daily. 2. CAD, status post PCI with ARVIND stent placement. Repeat cardiac catheterization demonstrated patent stent. Continue Plavix 75 mg p.o. daily, Lipitor 40 mg p.o. daily and metoprolol 25 mg p.o. b.i.d. 3. Pulmonary hypertension. Input from Dr. Devlin appreciated and the patient has been started on sildenafil 20 mg p.o. b.i.d. Continue with supplemental oxygen and bronchodilators as needed. 4. Severe COPD as above. Input from Dr. Devlin appreciated. Continue with bronchodilators and supplemental oxygen as needed. 5. Ischemic cardiomyopathy. Continue with care as above. Continue Eliquis 5 mg p.o. b.i.d. 6. Hypertension. Continue metoprolol 25 mg p.o. b.i.d. and ramipril 10 mg p.o. daily. 7. Hyperlipidemia. Continue Lipitor 40 mg p.o. daily. 8. Type 2 diabetes mellitus. Continue glipizide 5 mg p.o. b.i.d. and low-dose insulin sliding scale for coverage. 9. Hypothyroidism. Continue Synthroid 125 mcg p.o. daily. 10. Osteoarthritis. 11. Prophylaxis. GI prophylaxis not indicated as the patient is eating. DVT prophylaxis not indicated as the patient remains on Eliquis. CODE STATUS: Full code. Romulo Flores MD
[2018-07-20] MEDS: Levalbuterol 0.63 MG/3 ML Inhal Soln UD IH SCH ×4 (01:14→20:06)
[2018-07-20 02:54] LABS: PH,URINE 5.5 (4.7-8.0); URINE BILIRUBIN NEGATIVE (NEGATIVE); URINE BLOOD SMALL (NEGATIVE); URINE GLUCOSE (UA) NEGATIVE (NEGATIVE); URINE LEUKOCYTE ESTERASE MODERATE Leu/uL (NEGATIVE); URINE PROTEIN NEGATIVE mg/dL (<30 mg/dL); URINE UROBILINOGEN 0.2 E.U./dL (<1 E.U./dL)
[2018-07-20 02:59] LABS: URINE APPEARANCE SL CLOUDY (CLEAR); URINE COLOR YELLOW (YELLOW)
[2018-07-20 03:00] LABS: URINE BACTERIA MANY (NEG); URINE WBC 15 - 20 /hpf (0-6)
[2018-07-20] MEDS: Levothyroxine 125 MCG TAB PO SCH (06:03)
[2018-07-20 07:30] LABS: GRAN # 9.8 (1.4-6.5); HEMOGLOBIN 10.3 g/dL (12.0-16.0); LYMPH % 8.7 % (22.0-35.0); MEAN CELL VOLUME 81.9 fl (80.0-105.0); MEAN CORPUSCULAR HEMOGLOBIN 24.5 pg (25.0-35.0); MEAN CORPUSCULAR HGB CONC 29.9 g/dl (31.0-37.0); MEAN PLATELET VOLUME 9.6 fl (7.0-11.0); MONO # 0.7 (0.1-0.6); MONO % 6.3 % (1.0-6.0); RBC 4.2 10^6/uL (3.5-6.1); RED CELL DISTRIBUTION WIDTH 15.9 % (11.5-14.5); WHITE BLOOD COUNT 11.5 10^3/uL (4.5-11.0)
[2018-07-20 07:58] LABS: B-TYPE NATRIURETIC PEPTIDE 2500 pg/mL (0-450)
[2018-07-20] MEDS: Budesonide 0.5 mg/2 ml Inhal Susp UD IH SCH ×2 (08:05→20:06)
[2018-07-20] MEDS: Insulin Reg-LOW-Coverage SC SCH ×4 (08:11→22:17)
[2018-07-20 08:26] LABS: ALB/GLOB RATIO 1.2 (1.1-1.8); ALBUMIN 3.5 g/dL (3.0-4.8); ALT/SGPT 37 U/L (7-56); AST/SGOT 24 U/L (14-36); BLOOD UREA NITROGEN 45 mg/dL (7-21); CALCIUM 9.4 mg/dL (8.4-10.5); GFR NON-AFRICAN AMERICAN 53
--- NOTE | 2018-07-20 08:57 | PN ---
DATE: 07/20/2018 PULMONARY NOTE SUBJECTIVE: The patient appears comfortable this morning. She is not short of breath at rest. PHYSICAL EXAMINATION: VITALS: Temperature is 97.5, pulse on the monitor is 94, respiratory rate 18-20, and blood pressure 143/73. Oxygen saturation on room air is 93%. HEENT: Normocephalic, atraumatic. No JVD. CARDIOVASCULAR: Systolic ejection murmur at the lower left sternal border. Questionable S3 gallop. LUNGS: Very minimal rhonchi appreciated. No wheezing. EXTREMITIES: Mild edema. No cyanosis. No clubbing. Calves are nontender to palpation. GASTROINTESTINAL: Abdomen is soft, nontender, and nondistended. Bowel sounds are positive. SKIN: No acute rash. NEUROLOGIC: Limited at the present time. IMPRESSION: 1. Acute congestive heart failure. 2. Bilateral pleural effusions. 3. Chronic obstructive pulmonary disease. 4. Moderate pulmonary hypertension. 5. Ischemic cardiomyopathy. PLAN: The patient appears comfortable this morning. She is not short of breath at rest. She does state to feeling much better overall. I did discuss the case with the night nurse at length. The night nurse stated that the patient had a good night. On physical exam, her bronchospasm continues to resolve. In addition, the alveolar-arterial gradient is also much less. I will continue the current nebulizer treatments and oral steroids (changed yesterday) for now. The pulmonary artery pressure measurements - from the cardiac catheterization - are noted in yesterday's assessment. The patient is currently on Revatio. However, she does promise to follow up with me in the office - for revision of her pulmonary hypertensive medications. Inputs by Cardiology and Internal Medicine are also noted. Clinical status of the patient is significantly improved - compared to the initial presentation. However,given the above, her overall status/prognosis does remain guarded. The patient is for discharge in the near future. I will discuss the above with Dr. Flores this morning. Percy Devlin MD LOU
[2018-07-20] MEDS ORDERED: Metoprolol 1 mg/ml Inj IVP STA (10:03)
[2018-07-20] MEDS: Sildenafil 20 MG TAB PO SCH ×2 (10:16→18:15)
[2018-07-20] MEDS ORDERED: Albuterol-Ipratrop 3 mg / 0.5 (3 ml) UD IH PRN (11:18)
--- NOTE | 2018-07-20 12:22 | PN ---
DATE: 07/20/2018 SUBJECTIVE: The patient went into an SVT with a heart rate in the 140s today. Finally suppressed with addition of beta blockers. The patient ambulated with physical therapy, was unsteady on her feet. PHYSICAL EXAMINATION: VITAL SIGNS: Blood pressure is 135/68, heart rate currently is in the 70s. NECK: Negative JVD. LUNGS: Without rales. HEART: S1, S2. EXTREMITIES: Without edema. LABORATORY DATA: BUN is 45, creatinine is 1, glucose 149. Hemoglobin is 10.3. IMPRESSION 1. Dyspnea. 2. Patent stent in the circumflex artery. 3. Diabetes mellitus. 4. Chronic obstructive pulmonary disease. 5. Pulmonary hypertension. Given these findings, we will decrease her beta agonist. In addition, we will continue her beta-blockers. The patient would benefit from a stay in the TCU. Hemal Noel MD
[2018-07-20] MEDS: diltiaZEM 180 mg/24 Hours CD Cap PO SCH (12:49)
--- NOTE | 2018-07-20 12:52 | DS ---
HISTORY OF PRESENT ILLNESS: The patient was initially admitted with shortness of breath on 07/17/2018. She is an 83-year-old female with a past history of coronary artery disease with catheterization and stent placement, also COPD, who presented with an evaluation of 2-week history of worsening dyspnea on exertion. The patient was placed on bronchodilators on admission and supplemental oxygen and received one dose of intravenous Lasix. 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 She is currently sitting up in bed and has no specific complaints. She says her shortness of breath has dramatically improved. PHYSICAL EXAMINATION: VITAL SIGNS: Currently temperature of 97.5, pulse rate of 84, blood pressure 143/73, respiratory rate of 20 with 93 percent saturation of O2 on room air. HEENT: PERRLA, EOMI. No icterus is present. NECK: Supple with a full range of motion. LUNGS: Clear to auscultation and percussion bilaterally. HEART: Regular rate and rhythm. ABDOMEN: Benign. NEUROLOGICAL: There are no focal motor deficits. LABORATORY DATA: WBCs are 11.5, hemoglobin and hematocrit of 10.3 and 34.4. Chemistry is essentially normal with the exception of glucose of 130. BNP was 2500. It was 8030 on admission. Discussed the patient with Dr. Noel. He will discharge the patient sildenafil citrate 20 mg daily. Follow up in office in 1 week. DISCHARGE DIAGNOSES: 1. Pulmonary hypertension. 2. Chronic obstructive pulmonary disease. 3. Coronary artery disease status post stent placement and congestive heart failure. Farhat Flores MD
[2018-07-21 03:04] VITALS: RESP 19
[2018-07-21] MEDS: Levothyroxine 125 MCG TAB PO SCH (06:33)
--- NOTE | 2018-07-21 07:32 | PN ---
DATE: 07/21/2018 SUBJECTIVE: The patient appears very comfortable this morning. She is not short of breath at rest. PHYSICAL EXAMINATION: VITAL SIGNS: Temperature 98.0, pulse 90, respirations 19, blood pressure 131/87. Oxygen saturation on nasal cannula is 97%. HEENT: Normocephalic, atraumatic. NECK: No JVD. CARDIOVASCULAR: Systolic ejection murmur at the lower left sternal border. Questionable S3 gallop. LUNGS: Clear bilaterally this morning. EXTREMITIES: Mild edema. No cyanosis. No clubbing. Calves are nontender to palpation. GI: Abdomen is soft, nontender and nondistended. Bowel sounds are positive. SKIN: No acute rash. NEUROLOGIC: Exam limited at the present time. IMPRESSION: 1. Acute congestive heart failure. 2. Bilateral pleural effusions. 3. Chronic obstructive pulmonary disease. 4. Moderate pulmonary hypertension. 5. Ischemic cardiomyopathy. PLAN: The patient appears quite comfortable this morning. She is not short of breath at rest. She does state to feeling much better overall. I did discuss the case with the night nurse at length. The night nurse stated that the patient had a very good night. On physical exam, the patient's lungs are now clear. In addition, the oxygen saturation on nasal cannula is 97%. I will continue the current nebulizer treatments and decrease the oral steroids this morning. The patient also remains on sildenafil - for her pulmonary hypertension. Again, she does have my card/information for a followup appointment as an outpatient. Her current treatment-- for her pulmonary hypertension-- will most likely be revised. Input by Cardiology is also noted. The patient remains on oral Lasix. Clinical status of the patient is significantly improved - compared to her initial presentation. However, given the above, her future status/prognosis does remain guarded. I will discuss the above with Dr. Flores. Percy Devlin MD MTDFarheen
[2018-07-21] MEDS: Levalbuterol 0.63 MG/3 ML Inhal Soln UD IH SCH ×2 (07:39→13:39)
[2018-07-21] MEDS: Budesonide 0.5 mg/2 ml Inhal Susp UD IH SCH (07:39)
[2018-07-21] MEDS: Insulin Reg-LOW-Coverage SC SCH ×3 (08:30→18:05)
[2018-07-21] MEDS: diltiaZEM 180 mg/24 Hours CD Cap PO SCH (09:07)
[2018-07-21] MEDS ORDERED: Digoxin 250 mcg (0.25 mg) Tab PO STA (09:27)
[2018-07-21] MEDS ORDERED: diltiaZEM 180 mg/24 Hours CD Cap PO SCH (10:00)
--- NOTE | 2018-07-21 10:26 | PN ---
DATE: 07/21/2018 SUBJECTIVE: The patient currently is in room 272, bed 2. She is sitting up in her chair at rest and her heart rate is approximately 110 beats per minute. She has no complaints. Pulmonary physician saw her this morning and told her that her lungs were clear. PHYSICAL EXAMINATION: VITAL SIGNS: A pulse rate of 112, blood pressure of 149/67, respiratory rate of 19 with an O2 saturation of 97% on room air. HEENT: Unremarkable. NECK: Supple with full range of motion. LUNGS: Clear. HEART: Irregular with a rate of 110 beats per minute. ABDOMEN: The abdomen is soft. There is no organomegaly. It is nontender. Bowel sounds are normoactive. EXTREMITIES: Show no edema. NEUROLOGIC: There is no focal deficits. LABORATORY DATA: Lab values were not performed today. Glucose of 87 this a.m. We will transfer the patient to PCU and ambulate the patient. Farhat Flores MD
[2018-07-21] MEDS ORDERED: Digoxin 250 mcg (0.25 mg) Tab PO ONE (11:15)
[2018-07-21 11:38] VITALS: PULSE 102
[2018-07-21] MEDS: Sildenafil 20 MG TAB PO SCH ×2 (12:30→18:03)
--- NOTE | 2018-07-21 13:48 | PN ---
DATE: 07/21/2018 SUBJECTIVE: The patient continues to be tachycardic, both at rest and during exertion, up to 130 or up to 140, atrial fibrillation. PHYSICAL EXAMINATION: VITAL SIGNS: Blood pressure 149/67, heart rate currently is in the 112. NECK: Negative JVD. LUNGS: Without rales. HEART: S1 and S2. EXTREMITIES: Without edema. LABORATORY DATA: BUN and creatinine is 45 and 1, hemoglobin is 10.3. IMPRESSION: 1. Recurrent atrial fibrillation. 2. Chronic obstructive pulmonary disease. 3. Anemia. 4. Stable angina. PLAN: Given these findings, we will add digoxin to her regimen. We will load her with milligram today to help control her heart rate. Hemal Noel MD
[2018-07-21 16:59] VITALS: BP 132/76; PULSE 102; TEMP 98; O2SAT 94
--- NOTE | 2018-07-24 09:50 | PN ---
DATE: 07/22/2018 SUBJECTIVE: The patient is markedly improved. She feels well. She offers no respiratory complaints. She states that she is improved and offers no complaints of respiratory insufficiency. PHYSICAL EXAMINATION: GENERAL: The patient appears comfortable lying in bed, in no acute distress. VITAL SIGNS: Stable. She is afebrile. Pulse 90, respiratory rate 18, blood pressure 130/80, O2 sat 98% on nasal cannula. HEENT: Normocephalic, atraumatic. NECK: Supple. No bruits. No jugular venous distention. CARDIOVASCULAR: Regular rhythm. S1, S2 without murmur, gallop or rub. CHEST: Global decrease in breath sounds. No rales, rhonchi or wheezes are appreciated at this time. ABDOMEN: Soft. Bowel sounds normoactive without mass, guarding, rebound or organomegaly. EXTREMITIES: No clubbing, cyanosis or edema. NEUROLOGIC: No focal findings. CLINICAL IMPRESSION: 1. Pulmonary vascular congestion. 2. Chronic obstructive pulmonary disease. 3. Bilateral pleural effusions. 4. Possible pulmonary hypertension. 5. Ischemic cardiomyopathy. PLAN: Continue vigorous medication therapy. Repeat chest x-ray. We will follow closely with you and decide on the need for further intervention. The patient will require further workup upon discharge from the hospital. We will discuss with you at a later date. Thank you for the opportunity to follow closely with you. We will see her regularly during hospitalization. Gab Sidhu MD
== END 2018-07-21 18:46 | DRG 286 ==
LOC: ED 11:20 → ERH 15:02 → 2RSO 18:22
PROVIDERS: ADMIT Student in an Organized Health Care Education/Training Program; ATTEND Student in an Organized Health Care Education/Training Program
PROC: 4A023N8 Measurement of Cardiac Sampling and Pressure, Bilateral, Percutaneous Approach (ICD-10-PCS; principal; 2018-07-18)
PROC: B2161ZZ Fluoroscopy of Right and Left Heart using Low Osmolar Contrast (ICD-10-PCS; 2018-07-18)
PROC: B211YZZ Fluoroscopy of Multiple Coronary Arteries using Other Contrast (ICD-10-PCS; 2018-07-18)
DX: I11.0 Hypertensive heart disease with heart failure (principal); I50.21 Acute systolic (congestive) heart failure; I31.3 Pericardial effusion (noninflammatory); I47.1 Supraventricular tachycardia; I25.110 Atherosclerotic heart disease of native coronary artery with unstable angina pectoris; I25.5 Ischemic cardiomyopathy; I42.0 Dilated cardiomyopathy; I27.20 Pulmonary hypertension, unspecified; E11.9 Type 2 diabetes mellitus without complications; J44.9 Chronic obstructive pulmonary disease, unspecified; E03.9 Hypothyroidism, unspecified; I48.91 Unspecified atrial fibrillation; D64.9 Anemia, unspecified; E78.00 Pure hypercholesterolemia, unspecified; K21.9 Gastro-esophageal reflux disease without esophagitis; M19.90 Unspecified osteoarthritis, unspecified site; E78.5 Hyperlipidemia, unspecified; I25.2 Old myocardial infarction; Z79.1 Long term (current) use of non-steroidal anti-inflammatories (NSAID); Z79.4 Long term (current) use of insulin; Z87.891 Personal history of nicotine dependence; Z79.82 Long term (current) use of aspirin; Z95.5 Presence of coronary angioplasty implant and graft

== ENCOUNTER 2018-07-21 18:46 | Inpatient (IN) | payer OTHER ==
[2018-07-21 11:38] VITALS: PULSE 102
[2018-07-21] MEDS ORDERED: Albuterol-Ipratrop 3 mg / 0.5 (3 ml) UD IH PRN (19:55)
[2018-07-21] MEDS ORDERED: Levalbuterol 0.63 MG/3 ML Inhal Soln UD IH PRN (20:23)
[2018-07-21] MEDS ORDERED: Influenza Vaccine 60 mcg/0.5 mL SYR (4YR UP) IM ONE (21:30)
[2018-07-21] MEDS ORDERED: Pneumococcal 23-Valent Vaccine IM ONE (21:30)
[2018-07-21] MEDS: Budesonide 0.5 mg/2 ml Inhal Susp UD IH SCH (21:40)
[2018-07-21] MEDS: Insulin Reg-LOW-Coverage SC SCH (22:16)
[2018-07-22] MEDS: Levothyroxine 125 MCG TAB PO SCH (05:39)
[2018-07-22 06:42] LABS: T4 6.2 ug/dL (5.5-11.0)
[2018-07-22] MEDS: Insulin Reg-LOW-Coverage SC SCH ×4 (06:53→22:13)
[2018-07-22] MEDS: Budesonide 0.5 mg/2 ml Inhal Susp UD IH SCH ×2 (07:57→20:10)
[2018-07-22] MEDS: diltiaZEM 180 mg/24 Hours CD Cap PO SCH (09:07)
[2018-07-22] MEDS: Sildenafil 20 MG TAB PO SCH ×2 (09:08→17:31)
--- NOTE | 2018-07-22 13:58 | RAD ---
Date of service: 07/22/2018 HISTORY: Rule out CHF. COMPARISON: Comparison chest x-ray and CTA chest both dated 07/17/2018 FINDINGS: LUNGS: Previously noted bilateral effusions right larger markedly improved. Persistent mild but improved pulmonary venous congestive changes. Previously noted bullous emphysematous changes less well seen on this study as compared to high-resolution CT chest PLEURA: No significant pleural effusion identified, no pneumothorax apparent. CARDIOVASCULAR: Mild aortic atherosclerotic calcification present. Cardiomegaly.. No pulmonary vascular congestion. OSSEOUS STRUCTURES: No significant abnormalities. VISUALIZED UPPER ABDOMEN: Normal. OTHER FINDINGS: None. IMPRESSION: Previously noted bilateral effusions right larger markedly improved. Persistent mild but improved pulmonary venous congestive changes. Previously noted bullous emphysematous changes less well seen on this study as compared to high-resolution CT chest. Cardiomegaly.
--- NOTE | 2018-07-22 20:53 | PN ---
DATE: 07/22/2018 SUBJECTIVE: She is currently in TCU room 327, bed 1. The patient has no current complaints at this time. There have been no acute events overnight. PHYSICAL EXAMINATION: VITAL SIGNS: Temperature of 98.2, pulse rate of 80, blood pressure 145/71, O2 saturation of 97% on nasal cannula. HEENT: Negative. NECK: Supple with full range of motion. LUNGS: Clear to auscultation and percussion bilaterally. HEART: Regular rate and rhythm. ABDOMEN: Benign. NEUROLOGICAL: There are no focal motor deficits. LABORATORY DATA: Her glucose this morning was 77, subsequently at 11:53 was 167. Thyroxine is 6.2. PLAN: Continue physical therapy and ambulation. Farhat Flores MD
[2018-07-23] MEDS: Levothyroxine 125 MCG TAB PO SCH (06:25)
[2018-07-23] MEDS: Insulin Reg-LOW-Coverage SC SCH ×4 (07:16→22:11)
[2018-07-23] MEDS: Budesonide 0.5 mg/2 ml Inhal Susp UD IH SCH ×2 (07:35→19:54)
[2018-07-23] MEDS: diltiaZEM 180 mg/24 Hours CD Cap PO SCH (09:59)
[2018-07-23] MEDS: Sildenafil 20 MG TAB PO SCH ×2 (10:00→17:23)
--- NOTE | 2018-07-23 12:41 | PN ---
DATE: 07/23/2018 SUBJECTIVE: The patient has no complaints. There have been no acute events overnight. She is currently in room 327, bed 1. OBJECTIVE: VITAL SIGNS: Stable. Blood pressure 125/95, pulse rate of 84 and she is ambulatory. HEENT: Negative. LUNGS: Clear bilaterally. HEART: Regular rate and rhythm. No murmurs, rubs or gallops. ABDOMEN: Benign. NEUROLOGIC: There are no focal motor deficits. Glucose this morning was 86 mg/dl. DIAGNOSIS: Congestive heart failure and continue physical therapy. Farhat Flores MD
[2018-07-24] MEDS: Levothyroxine 125 MCG TAB PO SCH (06:13)
[2018-07-24] MEDS: Insulin Reg-LOW-Coverage SC SCH ×4 (06:53→21:52)
[2018-07-24] MEDS: Budesonide 0.5 mg/2 ml Inhal Susp UD IH SCH ×2 (07:26→21:25)
--- NOTE | 2018-07-24 08:51 | PN ---
DATE: 07/24/2018 PULMONARY NOTE SUBJECTIVE: The patient appears comfortable this morning. She is not short of breath at rest. OBJECTIVE: VITAL SIGNS: Temperature is 97.5, pulse 56, respirations 18, blood pressure 119/68. Oxygen saturation on nasal cannula is 95%. HEENT: Normocephalic, atraumatic. NECK: No JVD. CARDIOVASCULAR: Systolic ejection murmur at the lower left sternal border. Questionable S3 gallop. LUNGS: Clear bilaterally. EXTREMITIES: Mild edema. No cyanosis, no clubbing. Calves are nontender to palpation. GASTROINTESTINAL: Abdomen is soft, nontender and nondistended. Bowel sounds are positive. SKIN: No acute rash. NEUROLOGIC: Limited at the present time. IMPRESSION: 1. Acute congestive heart failure. 2. Bilateral pleural effusions. 3. Chronic obstructive pulmonary disease. 4. Moderate pulmonary hypertension. 5. Ischemic cardiomyopathy. PLAN: The patient appears comfortable this morning. She is not short of breath at rest. She does state to feeling much better overall. On physical exam, her lungs remain clear. In addition, there is a decrease in the alveolar-arterial gradient. I will continue the current nebulizer treatments and low-dose oral steroids for now. The patient also remains on Revatio - for her pulmonary hypertension. Clinical status of the patient is significantly improved - compared to her initial presentation. The patient is very well aware that she will need to follow up in the office with me as an outpatient - for revision of her pulmonary hypertension treatment. I would continue with the treatment for congestive heart failure as per Cardiology. The patient remains on Lasix. The patient is now on the Transitional Unit - where she will participate with physical therapy. I will discuss the above the attending physician. Percy Devlin MD MTDD
--- NOTE | 2018-07-24 09:53 | PN ---
SUBJECTIVE: The patient was seen and examined at bedside on the TCU. No acute events overnight. She remains afebrile and hemodynamically stable. She continues to endorse improvement in her respiratory status and overall feels okay. OBJECTIVE: VITAL SIGNS: Temperature 97.5, pulse 56, blood pressure 119/68, respiratory rate 20 and oxygen saturation 96% on 2L NC. GENERAL: No apparent distress. HEENT: PERRL, EOMI. No scleral icterus. No conjunctival pallor. NECK: No JVD. LUNGS: Distant breath sounds with faint wheeze and decreased breath sounds at the bases. CARDIOVASCULAR: Regular rate and rhythm. Normal S1 and S2. ABDOMEN: Normoactive bowel sounds. Soft, nontender and nondistended. EXTREMITIES: No edema. NEUROLOGIC: Awake, alert and oriented x 3. No focal motor deficits. LABORATORY DATA: No new labs. ASSESSMENT: The patient is an 83-year-old woman with multiple medical comorbidities including CAD s/p PCI with stent placement and COPD who was admitted for management of acute systolic congestive heart failure, COPD and pulmonary hypertension. PLAN: 1. Acute systolic heart failure, resolving. The patient continues to diurese satisfactorily. Continue Lasix 40 mg p.o. daily. Input from Dr. Noel noted and greatly appreciated. 2. CAD s/p PCI with ARVIND stent placement. Continue Plavix 75 mg p.o. daily, Lipitor 40 mg p.o. daily and Metoprolol 50 mg p.o. b.i.d. 3. Pulmonary hypertension. Input from Dr. Devlin greatly appreciated. Continue sildenafil 20 mg p.o. b.i.d. 4. Severe COPD. As above input from Dr. Devlin appreciated. Continue with bronchodilators, supplemental oxygen and steroid taper. 5. Ischemic cardiomyopathy. Continue with care as above. 6. AFib. The patient remains rate-controlled. Continue Diltiazem CD 180 mg p.o. daily and Eliquis 5 mg p.o. b.i.d. 7. Hypertension. Continue Metoprolol 50 mg p.o. b.i.d., Diltiazem CD 180 mg p.o. daily and Ramipril 10 mg p.o. daily. 8. Type 2 diabetes mellitus. Continue Glipizide 5 mg p.o. b.i.d. and low-dose insulin sliding scale. 9. Hyperlipidemia. Continue Lipitor 40 mg p.o. daily. 10. Hypothyroidism. Continue Synthroid 125 mcg p.o. daily. 11. Osteoarthritis. 12. Prophylaxis. GI prophylaxis not indicated as the patient is eating. DVT prophylaxis not indicated as the patient remains on Eliquis. CODE STATUS: Full code. Romulo Flores MD MTDD
[2018-07-24] MEDS: diltiaZEM 180 mg/24 Hours CD Cap PO SCH (10:21)
[2018-07-24] MEDS: Sildenafil 20 MG TAB PO SCH ×2 (10:22→17:06)
--- NOTE | 2018-07-24 12:45 | PN ---
DATE: 07/24/2018 SUBJECTIVE: The patient is in the TCU. Her breathing is much better, but the patient is complaining of her diet. PHYSICAL EXAMINATION: VITAL SIGNS: Blood pressure is 119/68, heart rates in the 60s. NECK: Negative JVD. LUNGS: Without rales. HEART: S1, S2. EXTREMITIES: Without edema. LABORATORY DATA: Glucose is 105. IMPRESSION: 1. Stable angina. 2. Patent stent in the circumflex artery. 3. Pulmonary hypertension. 4. Diabetes mellitus. Given these findings, the patient is working with physical therapy well. Her breathing is much improved on the current medications. Hemal Noel MD
[2018-07-24] MEDS: Levalbuterol 0.63 MG/3 ML Inhal Soln UD IH SCH ×2 (13:25→21:25)
[2018-07-25] MEDS: Levalbuterol 0.63 MG/3 ML Inhal Soln UD IH SCH ×4 (01:25→20:55)
[2018-07-25] MEDS: Levothyroxine 125 MCG TAB PO SCH (05:20)
[2018-07-25] MEDS: Insulin Reg-LOW-Coverage SC SCH ×4 (06:57→21:35)
[2018-07-25] MEDS: Budesonide 0.5 mg/2 ml Inhal Susp UD IH SCH ×2 (07:19→20:55)
[2018-07-25 07:20] LABS: EOS # 0.2 (0.0-0.7); EOS % 1.5 % (1.5-5.0); GRAN # 7.72 (1.4-6.5); GRAN % 66.6 % (50.0-68.0); HEMOGLOBIN 10.8 g/dL (12.0-16.0); LYMPH # 2.5 (1.2-3.4); LYMPH % 21.9 % (22.0-35.0); MEAN CELL VOLUME 82.1 fl (80.0-105.0); MEAN CORPUSCULAR HEMOGLOBIN 24.1 pg (25.0-35.0); MEAN CORPUSCULAR HGB CONC 29.3 g/dl (31.0-37.0); MEAN PLATELET VOLUME 9.6 fl (7.0-11.0); MONO # 1.2 (0.1-0.6); RBC 4.48 10^6/uL (3.5-6.1); RED CELL DISTRIBUTION WIDTH 15.2 % (11.5-14.5); WHITE BLOOD COUNT 11.6 10^3/uL (4.5-11.0)
[2018-07-25 07:51] LABS: BLOOD UREA NITROGEN 22 mg/dL (7-21); GFR NON-AFRICAN AMERICAN > 60
[2018-07-25 07:52] LABS: ALBUMIN 3.1 g/dL (3.0-4.8); CALCIUM 9.3 mg/dL (8.4-10.5)
[2018-07-25 07:53] LABS: ALB/GLOB RATIO 1.1 (1.1-1.8); ALT/SGPT 33 U/L (7-56); AST/SGOT 19 U/L (14-36)
--- NOTE | 2018-07-25 09:37 | PN ---
SUBJECTIVE: The patient was seen and examined at bedside on the TCU. No acute events overnight. She remains afebrile, hemodynamically stable and offers no respiratory complaints. OBJECTIVE: VITAL SIGNS: Temperature 98.1, pulse 62, blood pressure 141/71, respiratory rate 20 and oxygen saturation 94% on 2L NC. GENERAL: No apparent distress. HEENT: PERRL, EOMI. No scleral icterus. No conjunctival pallor. NECK: No JVD. LUNGS: Distant breath sounds with faint wheeze and decreased breath sounds at bases. CARDIOVASCULAR: Irregularly irregular. Normal S1 and S2. ABDOMEN: Normoactive bowel sounds. Soft, nontender and nondistended. EXTREMITIES: No edema. NEUROLOGIC: Awake, alert and oriented x 3. No focal motor deficits. LABORATORY DATA: WBC 11.6 with 66% neutrophils, hemoglobin 11, hematocrit 37 and platelets 222. Chemistry reviewed and unremarkable. ASSESSMENT: The patient is an 83-year-old woman with multiple medical comorbidities including CAD s/p PCI with stent placement and COPD who presented with a 3 week history of worsening dyspnea and was admitted for management of acute systolic congestive heart failure, COPD and pulmonary hypertension. PLAN: 1. Acute systolic heart failure, resolved. Continue Lasix 40 mg p.o. daily. 2. CAD s/p PCI with ARVIND stent placement. Input from Dr. Noel greatly appreciated. Continue Plavix 75 mg p.o. daily, Lipitor 40 mg p.o. daily and Metoprolol 50 mg p.o. b.i.d. 3. Pulmonary hypertension. Input from Dr. Devlin appreciated. Continue Sildenafil 20 mg p.o. b.i.d. 4. Severe COPD. Input from Dr. Devlin appreciated. Continue with bronchodilators, supplemental oxygen and steroid taper. 5. Ischemic cardiomyopathy. Continue with care as above. 6. AFib. The patient remains rate-controlled. Continue Diltiazem CD 180 mg p.o. daily and Eliquis 5 mg p.o. b.i.d. 7. Hypertension. Continue Metoprolol 50 mg p.o. b.i.d., Diltiazem CD 180 mg p.o. daily and Ramipril 10 mg p.o. daily. 8. Type 2 diabetes mellitus. Continue Glipizide 5 mg p.o. b.i.d. and low-dose insulin sliding scale. 9. Hyperlipidemia. Continue Lipitor 40 mg p.o. daily. 10. Hypothyroidism. Continue Synthroid 125 mcg p.o. daily. 11. Osteoarthritis. 12. Prophylaxis. GI prophylaxis not indicated as the patient is eating. DVT prophylaxis not indicated as the patient remains on Eliquis. CODE STATUS: Full code. Romulo Flores MD MTDD
[2018-07-25 10:08] VITALS: TEMP 97.6
[2018-07-25] MEDS: Sildenafil 20 MG TAB PO SCH (10:57)
[2018-07-25] MEDS: diltiaZEM 180 mg/24 Hours CD Cap PO SCH (10:59)
--- NOTE | 2018-07-25 11:03 | PN ---
DATE: 07/25/2018 SUBJECTIVE: The patient appears comfortable this morning. She is not short of breath at rest. PHYSICAL EXAMINATION: VITAL SIGNS (Last noted in the computer): Temperature is 98.1, pulse 71, respirations 14, blood pressure 136/61. Oxygen saturation on nasal cannula is 94%. HEENT: Normocephalic, atraumatic. No JVD. CARDIOVASCULAR: Systolic ejection murmur at the lower left sternal border. Questionable S3 gallop. LUNGS: Clear bilaterally. EXTREMITIES: Less edema. No cyanosis, no clubbing. Calves are nontender to palpation. GASTROINTESTINAL: Abdomen is soft, nontender and nondistended. Bowel sounds are positive. SKIN: No acute rash. NEUROLOGIC: Exam limited at the present time. IMPRESSION: 1. Acute congestive heart failure. 2. Bilateral pleural effusions. 3. Chronic obstructive pulmonary disease. 4. Moderate pulmonary hypertension. 5. Ischemic cardiomyopathy. PLAN: The patient appears comfortable this morning. She is not short of breath at rest. She does state to feeling much better overall. On physical exam, her lungs remain clear. In addition, there is a decrease in the alveolar-arterial gradient. I will continue the current nebulizer treatments and low-dose oral steroids for now. The patient also remains on Revatio - for her pulmonary hypertension. Input by Cardiology (Dr. Noel) is also noted. Clinical status of the patient is definitely improved - compared to her initial presentation. However, given the above, her future status/prognosis does remain guarded. She remains on the transitional unit. I will discuss the above with Dr. Flores. Percy Devlin MD MTDD
[2018-07-25 16:17] VITALS: RESP 16; O2SAT 97
--- NOTE | 2018-07-25 18:05 | PN ---
DATE: 07/25/2018 SUBJECTIVE: The patient is without chest pain. Her breathing has much improved. PHYSICAL EXAMINATION VITAL SIGNS: Blood pressure is 136/60, the heart rate is in the 80s. NECK: Negative JVD. LUNGS: Without rales. HEART: S1, S2. EXTREMITIES: Without edema. LABORATORY DATA: Hemoglobin is 10.8. Chemistry; BUN and creatinine are unremarkable. Glucose is 132. IMPRESSION: 1. Stable angina. 2. Status post percutaneous transluminal coronary angioplasty and stent. 3. Pulmonary hypertension. 4. Diabetes mellitus. 5. Dyspnea has resolved. PLAN: Given these findings, the patient is working well with physical therapy. Hemal Noel MD
[2018-07-26] MEDS: Levalbuterol 0.63 MG/3 ML Inhal Soln UD IH SCH ×3 (02:02→13:10)
[2018-07-26] MEDS: Levothyroxine 125 MCG TAB PO SCH (05:05)
[2018-07-26] MEDS: Insulin Reg-LOW-Coverage SC SCH ×2 (06:46→12:20)
[2018-07-26] MEDS: Budesonide 0.5 mg/2 ml Inhal Susp UD IH SCH (07:27)
--- NOTE | 2018-07-26 08:37 | PN ---
DATE: 07/26/2018 SUBJECTIVE: The patient appears very comfortable this morning. She is not short of breath at rest. PHYSICAL EXAMINATION: VITAL SIGNS: (Last noted in the computer): Temperature 97.6, pulse 74, respirations 16, blood pressure 131/67. Oxygen saturation on nasal cannula is 97%. HEENT: Normocephalic, atraumatic. NECK: No JVD. CARDIOVASCULAR: Systolic ejection murmur at the lower left sternal border. Questionable S3 gallop. LUNGS: Clear bilaterally. EXTREMITIES: Minimal edema. No cyanosis. No clubbing. Calves are nontender to palpation. GI: Abdomen is soft, nontender and nondistended. Bowel sounds are positive. SKIN: No acute rash. NEUROLOGIC: Exam limited at the present time. IMPRESSION: 1. Acute congestive heart failure. 2. Bilateral pleural effusions. 3. Chronic obstructive pulmonary disease. 4. Moderate pulmonary hypertension. 5. Ischemic cardiomyopathy. PLAN: The patient appears very comfortable this morning. She is not short of breath at rest. She does state to feeling much, much better overall. On physical exam, her lungs remain clear. In addition, there is no significant alveolar-arterial gradient. I will continue the current nebulizer treatments and decrease the oral steroids this morning. The patient also remains on Revatio - for her pulmonary hypertension. Clinical status of the patient is significantly improved - compared to the initial presentation. However, given the above, the patient's overall status/prognosis does remain guarded. The patient is for discharge in the near future. She is well aware that she will need to follow up with me in the office - as an outpatient. I will discuss the above with Dr. Flores. Percy Devlin MD MTDFarheen
--- NOTE | 2018-07-26 09:21 | PN ---
SUBJECTIVE: The patient is seen and examined at bedside on the TCU. No acute events overnight. OBJECTIVE: VITAL SIGNS: Temperature 97.6, pulse 67, blood pressure 118/62, respiratory rate 18, oxygen saturation 98% on 2L NC. GENERAL: No apparent distress. HEENT: PERRL. EOMI. No scleral icterus. No conjunctival pallor. NECK: No JVD. LUNGS: Clear to auscultation. CARDIOVASCULAR: Irregularly irregular. Normal S1, S2. ABDOMEN: Normoactive bowel sounds. Soft, nontender, nondistended. EXTREMITIES: No edema. NEUROLOGIC: Awake, alert and oriented x 3. No focal motor deficits. LABORATORY DATA: No new labs. ASSESSMENT: The patient is an 83-year-old woman with multiple medical comorbidities including CAD s/p PCI with stent placement and COPD who presented with a 3 week history of worsening dyspnea and was admitted for management of acute systolic congestive heart failure, COPD and pulmonary hypertension. PLAN: 1. Acute systolic heart failure, resolved. Continue Lasix 40 mg p.o. daily 2. CAD s/p PCI with ARVIND stent placement. Input from Dr. Noel appreciated. Continue Plavix 75 mg p.o. daily, Lipitor 40 mg p.o. daily and Metoprolol 50 mg p.o. b.i.d. 3. Pulmonary hypertension. Input from Dr. Devlin appreciated. Continue Sildenafil 20 mg p.o. b.i.d. 4. Severe COPD. Input from Dr. Devlin appreciated. Continue bronchodilators, supplemental oxygen and steroid taper. 5. Ischemic cardiomyopathy. Continue with care as above. 6. AFib. The patient remains rate-controlled. Continue Diltiazem CD 180 mg p.o. daily and Eliquis 5 mg p.o. b.i.d. 7. Hypertension. Continue Metoprolol 50 mg p.o. b.i.d., Diltiazem CD 180 mg p.o. daily and Ramipril 10 mg p.o. daily. 8. Type 2 diabetes mellitus. Continue Glipizide 5 mg p.o. b.i.d. and low-dose insulin sliding scale. 9. Hyperlipidemia. Continue Lipitor 40 mg p.o. daily. 10. Hypothyroidism. Continue Synthroid 125 mcg p.o. daily. 11. Osteoarthritis. 12. Prophylaxis. GI prophylaxis not indicated as the patient is eating. DVT prophylaxis not indicated as the patient remains on Eliquis. CODE STATUS: Full code. Romulo Flores MD MTDFarheen
[2018-07-26] MEDS: Sildenafil 20 MG TAB PO SCH (10:31)
[2018-07-26] MEDS: diltiaZEM 180 mg/24 Hours CD Cap PO SCH (10:32)
[2018-07-26 10:33] VITALS: BP 125/66; PULSE 84
== END 2018-07-26 14:16 | disposition home or self-care (01) | DRG 291 ==
LOC: TRCU 18:46
PROVIDERS: ADMIT Student in an Organized Health Care Education/Training Program; ATTEND Student in an Organized Health Care Education/Training Program
PROC: F07Z9FZ Gait Training/Functional Ambulation Treatment using Assistive, Adaptive, Supportive or Protective Equipment (ICD-10-PCS; principal; 2018-07-23)
PROC: F07L6YZ Therapeutic Exercise Treatment of Musculoskeletal System - Lower Back / Lower Extremity using Other Equipment (ICD-10-PCS; 2018-07-23)
PROC: F07Z8ZZ Transfer Training Treatment (ICD-10-PCS; 2018-07-25)
PROC: F08Z2ZZ Grooming/Personal Hygiene Treatment (ICD-10-PCS; 2018-07-25)
DX: I11.0 Hypertensive heart disease with heart failure (principal); I50.21 Acute systolic (congestive) heart failure; I27.20 Pulmonary hypertension, unspecified; E11.9 Type 2 diabetes mellitus without complications; I25.118 Atherosclerotic heart disease of native coronary artery with other forms of angina pectoris; I25.5 Ischemic cardiomyopathy; J44.9 Chronic obstructive pulmonary disease, unspecified; E78.5 Hyperlipidemia, unspecified; E03.9 Hypothyroidism, unspecified; M19.90 Unspecified osteoarthritis, unspecified site; Z95.5 Presence of coronary angioplasty implant and graft; Z79.84 Long term (current) use of oral hypoglycemic drugs

== ENCOUNTER 2018-09-16 12:20 | Outpatient (CLI) | payer MEDICARE | END 2018-09-16 12:21 | disposition home or self-care (01) | LOC: RAD 12:20 ==